=== PATIENT | male | born 1960 | race Caucasian/White ===

== ENCOUNTER 2018-08-23 12:03 | Inpatient (IN) | payer MEDICAID ==
[~2018-08-23] VITALS: Ht 180.3 cm; Wt 77.8 kg
[2018-08-23] VITALS (22 sets, daily range): BP systolic 154–208; BP diastolic 79–116
--- NOTE | 2018-08-23 12:05 | NUR ---
PT CRISTOFER FROM THE STREETS FOR C/O GEN WEAKNESS; PT AAOX4, PT ON MONITOR, NAD NOTED, VSS, PENDING ER PROVIDER NOLBERTO
[2018-08-23 12:30] LABS: BASOPHILS # (AUTO) 0.4 /CMM (0.0-0.2); BASOPHILS % (AUTO) 1.2 % (0.0-2.0); HEMATOCRIT 31 % (39-51); HEMOGLOBIN 10.4 g/dL (13.5-17.5); LYMPHOCYTES # (AUTO) 0.6 /CMM (0.8-4.8); LYMPHOCYTES % (AUTO) 1.9 % (20.0-44.0); MEAN CORPUSCULAR HGB CONC 33 g/dl (31.0-36.0); MEAN CORPUSCULAR VOLUME 80 fL (80-96); MONOCYTES # (AUTO) 0.7 /CMM (0.1-1.30); MONOCYTES % (AUTO) 2.3 % (2.0-12.0); NEUTROPHILS # (AUTO) 30.4 /CMM (1.8-8.9); NEUTROPHILS % (AUTO) 94.6 % (43.0-81.0); RED BLOOD CELL COUNT(AUTO) 3.89 MIL/uL (4.5-6.0)
[2018-08-23 12:40] LABS: PLATELET COUNT (AUTO) 1175 /CMM (150-450); WHITE BLOOD COUNT (AUTO) 32.2 K/uL (4.3-11.0)
--- NOTE | 2018-08-23 12:43 | NUR ---
PT EATING MEAL TRAY RIGHT NOW, GIVEN URINAL AT BEDSIDE FOR URINE COLLECTION
[2018-08-23] MEDS ORDERED: CEFTRIAXONE 1GM BAG (ER ONLY) 50 ML IV ONE (12:45)
[2018-08-23 12:46] LABS: BAND % (MANUAL) 2 % (0.0-5.0); EOSINOPHILS % (MANUAL) 1 % (0-4); LYMPHOCYTES % (MANUAL) 2 % (16-48); MONOCYTES % (MANUAL) 2 % (0-11.0); NEUTROPHILS % (MANUAL) 93 (42-76)
[2018-08-23 12:47] LABS: ALBUMIN 3.3 g/dL (3.4-5.0); BILIRUBIN,DIRECT 0.1 mg/dL (0.0-0.2); BILIRUBIN,TOTAL 0.4 mg/dL (0.2-1.0); CALCIUM, SERUM 9.5 mg/dL (8.5-10.1); TOTAL PROTEIN, SERUM 10.1 g/dL (6.4-8.2)
--- NOTE | 2018-08-23 12:56 | NUR ---
CALLED NURSING [facility] FOR ICU BED
[2018-08-23] MEDS ORDERED: INSULIN REGULAR, HUMAN 100 UNIT/ML 10 ML VIAL IV ONE (13:00)
[2018-08-23] MEDS ORDERED: CALCIUM CHLORIDE 1,000 MG/10 ML DISP.SYRIN IV ONE (13:00)
[2018-08-23] MEDS ORDERED: DEXTROSE 50%-WATER 50 ML DISP.SYRIN IV ONE (13:00)
[2018-08-23] MEDS ORDERED: SODIUM POLYSTYRENE SULFONATE 15 G/60 ML BOTTLE PO ONE (13:00)
[2018-08-23] MEDS ORDERED: CEFTRIAXONE 1GM BAG (ER ONLY) 1 GM/50 ML PIGGYBACK IV ONE (13:00)
[2018-08-23] MEDS ORDERED: FUROSEMIDE 40 MG/4 ML VIAL IV ONE ×2 (13:00→13:30)
[2018-08-23] MEDS ORDERED: SODIUM BICARBONATE SYR 50 MEQ/50 ML DISP.SYRIN IV ONE ×2 (13:00→13:30)
[2018-08-23] MEDS ORDERED: IV NS 0.9% 1,000 ML BAG IV ONE (13:00)
--- NOTE | 2018-08-23 13:00 | NUR ---
PER DR. HUNTLEY, ORDER FOR UROJET FOR F/C INSERTION; VERBAL ORDER REC'D
[2018-08-23] MEDS ORDERED: FUROSEMIDE 20 MG/2 ML VIAL ONE (13:01)
[2018-08-23] MEDS ORDERED: SODIUM BICARBONATE SYR 50 MEQ/50 ML DISP.SYRIN ONE ×2 (13:01→13:25)
[2018-08-23] MEDS ORDERED: CALCIUM CHLORIDE 1,000 MG/10 ML DISP.SYRIN ONE (13:02)
[2018-08-23] MEDS ORDERED: DEXTROSE 50%-WATER 50 ML DISP.SYRIN ONE (13:03)
[2018-08-23] MEDS ORDERED: INSULIN REGULAR, HUMAN 100 UNIT/ML 10 ML VIAL ONE (13:03)
--- NOTE | 2018-08-23 13:19 | NUR ---
DR DURAN ON PHONE WITH DR MORENO
[2018-08-23] MEDS ORDERED: SODIUM POLYSTYRENE SULFONATE 15 G/60 ML BOTTLE ONE (13:34)
--- NOTE | 2018-08-23 13:35 | NUR ---
GOT ICU BED 256
--- NOTE | 2018-08-23 13:45 | NUR ---
TECH AT BEDSIDE FOR US.
[2018-08-23] MEDS ORDERED: LIDOCAINE 2% JEL UROJET 10 ML MM ONE (13:48)
--- NOTE | 2018-08-23 14:30 | NUR ---
RN NOTES RECEIVED REPORT FROM ALLI GONZALES FOR PATIENT COMING IN DUE TO ACUTE RENAL FAILURE UNDER THE SERVIVE OF DR FOSTER. BED PREPARED, BED ZERO-ED OUT, AWAITING PATIENT ARRIVAL TO UNIT
--- NOTE | 2018-08-23 14:30 | NUR ---
REPORT GIVEN TO WARREN RN FOR GENESIS
[2018-08-23] MEDS ORDERED: FUROSEMIDE 40 MG/4 ML VIAL ONE (14:36)
--- NOTE | 2018-08-23 14:40 | NUR ---
RN NOTES RECEIVED PATIENT FROM ER VIA GURNEY, TRANSFERRED COMFORTABLY TO BED, PATIENT ALERT AND ORIENTED X4, ABLE TO MAKE NEEDS KNOWN, ON ROOM AIR, NOT ON ANY FORM OF DISTRESS, NO COMPLAINTS OF PAIN AT THIS TIME. PLACED ON BED SIDE MONITOR: SINUS RHYTHM HR AT 99, BLOOD PRESSURE NOTED TO BE ELEVATED. PER CHRISTIAN CARSON, BLOOD PRESSURE HAS BEEN ELEVATED. SKIN ASSESSMENT DONE, SKIN ISSUES NOTED, TAKEN PICTURES AND FILED ON THE CHART. HD CATH NOTED ON THE R GROIN AREA: IN PLACE AND INTACT. G20 IV LINE ON THE R HAND AND ON THE LEFT AC: BOTH INTACT AND IN PLACE. WITH ONGOING IVF OF NORMAL SALINE- WIDE OPEN: STARTED AT THE ER WILL FINISH UP. PATIENT ORIENTED TO UNIT. CALL LIGHT PLACED WITHIN REACH. SAFETY MEASURES OBSERVED AND MAINTAIN, WILL FOLLOW UP ON ADMITTING ORDERS. WILL CONTINUE TO MONITOR PATIENT CLOSELY
--- NOTE | 2018-08-23 14:40 | NUR ---
PT TRANSFERRED TO ICU VIA ACLS PROTOCOL
--- NOTE | 2018-08-23 15:21 | NUR ---
RN NOTES SEEN AND EXAMINED BY DR MORENO. INFORMED MD THAT SYSTOLIC BLOOD PRESSURE ON THE 170 AT THIS TIME, PER MD- CONTINUE TO MONITOR SINCE PATIENT WILL GET DIALYZE TODAY.
[2018-08-23] MEDS ORDERED: ONDANSETRON HCL/PF 4 MG/2 ML VIAL IVP PRN (15:30)
[2018-08-23] MEDS ORDERED: Z GUARD REMEDY 2 OZ OINT TP PRN (15:30)
[2018-08-23] MEDS ORDERED: ACETAMINOPHEN 325 MG TABLET PO PRN (15:30)
[2018-08-23] MEDS ORDERED: FEE PK DOSING 1 MIN EA MC ONE (15:41)
[2018-08-23] MEDS: HYDROCODONE/APAP 5/325MG 1 EACH TABLET PO PRN (16:19)
[2018-08-23] MEDS ORDERED: NITROGLYCERIN 30 GM TUBE TP PRN (16:30)
[2018-08-23] MEDS ORDERED: VANCOMYCIN 1 GM in IV D5W 250 ML IV ONE (17:00)
[2018-08-23] MEDS ORDERED: CEFEPIME 1 GM in IV D5W 50 ML IV ONE (17:00)
[2018-08-23] MEDS ORDERED: IV NS 0.9% 250 ML IV ONE (17:00)
--- NOTE | 2018-08-23 17:00 | NUR ---
RN NOTES REINFORMED DR MORENO THAT BLOOD PRESSURE NOW AT SYSTOLIC OF 200MMHG; OBTAINED ORDER FOR NITROGLYCERIN OINTMENT 1GM TO CHEST WALL Q6HR PRN FOR SYSTOLIC BLOOD PRESSURE GREATER THAN 170MMHG. ORDER NOTED AND CARRIED OUT
[2018-08-23] MEDS: IV NS 0.9% 1,000 ML IV PRN (17:03)
[2018-08-23] MEDS ORDERED: IV Sodium Chloride 3% 500 ML 500 ML IV ONE (17:30)
[2018-08-23] MEDS ORDERED: OSELTAMIVIR PHOSPHATE 75 MG CAPSULE PO SCH (17:59)
[2018-08-23] MEDS ORDERED: BISACODYL (5 MG) 5 MG TABLET.DR PO PRN (18:00)
--- NOTE | 2018-08-23 18:00 | NUR ---
RN NOTES PATIENT WITH ATTEMPTS TO DEFECATE TWICE AND WAS ASKING FOR ENEMA. CURRENTLY NO ORDER FOR ENEMA. DR. FOSTER INFORMED TO OBTAIN ORDER. OBTAIN ORDER FOR DULCOLAX 5MG TABLET PO PRN FOR CONSTIPATION. ORDER NOTED AND CARRIED OUT Addendum: 08/23/18 at 1842 by WARREN SUNG RN PATIENT STARTED ON DIALYSIS TREATMENT AT THIS TIME
--- NOTE | 2018-08-23 19:16 | NUR ---
RN NOTES ENDORSED PATIENT FOR CONTINUITY OF CARE. NO ACUTE CHANGES. NOT ON ANY FORM OF DISTRESS. PATIENT STILL ON DIALYSIS TREATMENT. ALL NURSING NEEDS ATTENDED AND MET. SAFETY MEASURES IN PLACE AT ALL TIMES. CALL LIGHT WITHIN REACH AT ALL TIMES
--- NOTE | 2018-08-23 19:30 | NUR ---
ICU/RN RECEIVED PT AWAKE,ALERT AND ORIENTED.HD IN PROGRESS.MONITOR SR W/OUT ECTOPICS.
--- NOTE | 2018-08-23 20:55 | NUR ---
ICU/RN CALL PLACED TO DR. MORENO'S EXCHANGE FOR SBP OF 204.DR KNOX EXTENSION SERVICE SPECIALIST IN CHARGE,ORDER RECEIVED.
--- NOTE | 2018-08-23 23:30 | NUR ---
ICU/RN CLONIDINE 0.1MG GIVEN FOR SBP OF 195MMHG ORDERED.
[2018-08-23] MEDS: CLONIDINE HCL 0.1 MG TABLET PO PRN (23:31)
[2018-08-24] VITALS (34 sets, daily range): BP systolic 119–167; BP diastolic 62–101
--- NOTE | 2018-08-24 | NUR ---
ICU/RN CLONIDINE EFFECTIVE.SEE DATASCOPE SHEET.
--- NOTE | 2018-08-24 03:30 | NUR ---
ICU/RN AWAKE AND WANTING SOMETHING TO EAT AND WATER TO DRINK.MILK,ELAINE CRACKERS AND VANILLA PUDDING GIVEN.QUESTIONS ASKED REGARDING MEDS,CORRECTION AND HE STATED "I'M HOMELESS."SOCIAL SERVICE CONSULT NEEDED
[2018-08-24 04:37] LABS: APPEARANCE,URINE CLOUDY (CLEAR); BILIRUBIN,URINE NEGATIVE (NEGATIVE); BLOOD, URINE 3+ Ery/uL (NEGATIVE); COLOR,URINE RED (YELLOW); KETONES,URINE NEGATIVE (NEGATIVE); LEUKOCYTE ESTERASE ,URINE 3+ (NEGATIVE); NITRITE, URINE POSITIVE (NEGATIVE); PROTEIN,URINE 2+ mg/dl (NEGATIVE); UGLUCOSE NEGATIVE (NEGATIVE); UROBILINOGEN,URINE 0.2 EU/dL (0.2)
[2018-08-24 04:43] LABS: BACTERIA,URINE Few /HPF (None Seen); RBC,URINE TOO NUMEROUS TO COUN /HPF (0-2); SQUAMOUS EPITHELIAL CELL,UR Rare /HPF (None Seen); WBC,URINE TOO NUMEROUS TO COUN /HPF (0-3)
[2018-08-24 04:58] LABS: CALCIUM, SERUM 7.8 mg/dL (8.5-10.1); MAGNESIUM 1.8 mg/dL (1.8-2.4); POTASSIUM 5.7 mmol/L (3.5-5.1)
[2018-08-24 05:00] LABS: THYROID STIMULATING HORMONE 1.48 uIU/mL (0.358-3.74)
[2018-08-24 05:14] LABS: CREATININE 10.5 mg/dL (0.6-1.3)
[2018-08-24 05:17] LABS: HEMATOCRIT 23 % (39-51); MEAN CORPUSCULAR HGB CONC 35 g/dl (31.0-36.0); MEAN CORPUSCULAR VOLUME 78 fL (80-96); RED BLOOD CELL COUNT(AUTO) 2.89 MIL/uL (4.5-6.0); WHITE BLOOD COUNT (AUTO) 22.3 K/uL (4.3-11.0)
[2018-08-24 05:18] LABS: BASOPHILS % (AUTO) 0.1 % (0.0-2.0); LYMPHOCYTES % (AUTO) 2.9 % (20.0-44.0); MONOCYTES % (AUTO) 5.4 % (2.0-12.0); NEUTROPHILS % (AUTO) 91.6 % (43.0-81.0); PLATELET COUNT (AUTO) 831 /CMM (150-450)
--- NOTE | 2018-08-24 06:00 | NUR ---
ICU/RN. OY=[id number].DENIES PAIN OR DISCOMFORT.OFFERS NO COMPLAINTS.
--- NOTE | 2018-08-24 07:10 | NUR ---
RN INITIAL NOTES: Rec'd pt asleep on bed, not in any distress, easily arousable, A/O x 4. On room air, no SOB. On telemonitor, SR 86 bpm. Has R hand G20 w/ NS x 75 cc/hr infusing well, L AC G20 SL. Has FC draining to BSB w/ adequate yellowish w/ pink tinged UOP. Has R groin HD cath in place. Safety precaution in place. Bed in locked & lowest pos. Call light w/in reach. Will cont to monitor & attend pt needs.
[2018-08-24] MEDS: PANTOPRAZOLE 40 MG TABLET.DR PO SCH (07:36)
[2018-08-24] MEDS: SEVELAMER CARBONATE 800 MG TABLET PO SCH ×3 (07:36→17:51)
[2018-08-24] MEDS: IV NS 0.9% 1,000 ML IV PRN ×2 (07:36→21:07)
--- NOTE | 2018-08-24 11:30 | NUR ---
Pt seen & examined by Dr. Gallardo.
--- NOTE | 2018-08-24 14:00 | NUR ---
HD tolerated well w/ 1L output.
[2018-08-24] MEDS ORDERED: VANCOMYCIN 500 MG in IV D5W 100 ML IV PRN (16:00)
[2018-08-24] MEDS: CEFEPIME 1 GM in IV D5W 50 ML IV SCH (17:51)
[2018-08-24] MEDS: LACTOBACILLUS RHAMNOSUS GG 1 EACH CAP.SPRINK PO SCH (17:51)
[2018-08-24] MEDS ORDERED: OSELTAMIVIR PHOSPHATE 75 MG CAPSULE PO SCH (18:00)
--- NOTE | 2018-08-24 18:20 | NUR ---
SUPERINTENDENT PIER NOTES: Pt transferred to [facility] as ordered via bed accompanied by RNs (ACLS protocol). Pt not in any distress, A/O x 4, denies pain & discomfort during transfer. IV lines kept patent & intact w/ no s/sx of infection/infiltration noted w/ C/D/I dressing. Belongings sent w/ pt. Report given to ALLI Holcomb. No concerns/issues identified during transfer.
--- NOTE | 2018-08-24 18:30 | NUR ---
ms rn received a new transfer from icu, a 58 year old male,awake,alert,oriented x4,not in any form of distress, came in w/ dx of acute renal failure, no distress noted, will continue to monitor patient.
--- NOTE | 2018-08-24 18:52 | NUR ---
ms rn on bed, no distress note.
--- NOTE | 2018-08-24 19:42 | NUR ---
FLUORESCENT LAMP REPLACER OPENING NOTES: RECEIVED PT IN HIGH REYES'S POSITION AND IS ASLEEP AT THIS TIME. PT ON TELE AND READING SHOWS SR 80. PT HAS GUERRIER CATH AND IS ATTACHED TO DRAINAGE BAG WITH YELLOW URINE DRAINING. PT HAS IV ON R HAND #20G AND IS BEING INFUSED WITH IV NS AT 75ML/HR. PT HAS R GROIN HD CATH AND IS INTACT. PT ALSO HAS IV ON L AC #20G AND IS PATENT AND INTACT. BED KEPT IN LOW, LOCKED POSITION, AND SIDE RAILS X 2UP. PT HAS BILATERAL SCD PUMPS IN PLACE. WILL CONTINUE TO MONITOR PT.
[2018-08-25] VITALS (8 sets, daily range): BP systolic 96–163; BP diastolic 58–86
--- NOTE | 2018-08-25 06:50 | NUR ---
DINING ROOM HOST CLOSING NOTES: ALL NEEDS WERE ATTENDED AND ANTICIPATED FOR. PT RESTING IN BED COMFORTABLY AT THIS TIME. PT ON ROOM AIR AND TOLERATING WELL .NO SOB NOTED. NO S/S OF DISTRESS. PT REFUSING TO HAVE BED BATH OFFERED MULTIPLE TIMES. PT ON TELE BOX AND READING SHOWS SR 73. PT HAS NITRO BID PATCH ON CHEST WALL. PT HAS GUERRIER CATH AND IS ATTACHED TO DRAINAGE BAG WITH YELLOW URINE DRAINING. OUTPUT WAS 1900ML. PT HAS IV ON R HAND #20G AND IS BEING INFUSED WITH IV NS AT 75ML/HR. PT ALSO HAS L AC #20G AND IS PATENT AND INTACT. CURRENTLY H/L. PT ALSO HAS R FEMORAL HD CATH AND IS PATENT AND INTACT. PT HAS BILATERAL SCD PUMPS IN PLACE. BED KEPT IN LOW, LOCKED POSITION, AND SIDE RAILS X 2UP. WILL ENDORSE TO AM NURSE FOR GENESIS.
[2018-08-25 07:07] LABS: BASOPHILS % (AUTO) 0.1 % (0.0-2.0); EOSINOPHILS % (AUTO) 0.1 % (0.0-6.0); HEMATOCRIT 23 % (39-51); HEMOGLOBIN 7.6 g/dL (13.5-17.5); LYMPHOCYTES # (AUTO) 0.8 /CMM (0.8-4.8); LYMPHOCYTES % (AUTO) 3.7 % (20.0-44.0); MEAN CORPUSCULAR HGB CONC 33 g/dl (31.0-36.0); MEAN CORPUSCULAR VOLUME 80 fL (80-96); MONOCYTES # (AUTO) 1.4 /CMM (0.1-1.30); NEUTROPHILS # (AUTO) 20.6 /CMM (1.8-8.9); NEUTROPHILS % (AUTO) 90.1 % (43.0-81.0); PLATELET COUNT (AUTO) 656 /CMM (150-450); RED BLOOD CELL COUNT(AUTO) 2.89 MIL/uL (4.5-6.0); WHITE BLOOD COUNT (AUTO) 22.8 K/uL (4.3-11.0)
--- NOTE | 2018-08-25 07:15 | NUR ---
air surveillance operator Opening Notes 324-1 Patient awake, resting in bed. Alert and oriented x4. No complaints of dizziness or pain at this time. Respirations even and unlabored on room air, no acute distress noted. External surveillance monitor in place, current rhythm sinus rhythm at 66 bpm. Peripheral IV to the left AC 20 gauge, intact, patent and saline locked; Peripheral IV to the right hand 20 gauge, intact, patent and NS at 75 mL/hr. Garcia catheter in place, intact, patent and draining clear, yellow urine. Right femoral hemodiaylsis catheter in place, patent and intact. Updated patient on current plan of care and safety meaures. Safety and fall precautions in place: bed in lowest and locked position, side rails up x2, bed alarm on, call light and personal possessions within reach. Patient verbalized understanding. Will continue to monitor and intervene as needed.
[2018-08-25 07:35] LABS: MAGNESIUM 1.9 mg/dL (1.8-2.4); POTASSIUM 4.9 mmol/L (3.5-5.1)
[2018-08-25 07:38] LABS: PHOSPHORUS 8.4 mg/dL (2.5-4.9)
[2018-08-25 08:03] LABS: BAND % (MANUAL) 3 % (0.0-5.0); EOSINOPHILS % (MANUAL) 1 % (0-4); LYMPHOCYTES % (MANUAL) 4 % (16-48); MONOCYTES % (MANUAL) 6 % (0-11.0); NEUTROPHILS % (MANUAL) 86 (42-76)
[2018-08-25] MEDS: SEVELAMER CARBONATE 800 MG TABLET PO SCH ×3 (08:20→17:07)
[2018-08-25] MEDS: PANTOPRAZOLE 40 MG TABLET.DR PO SCH (08:20)
[2018-08-25] MEDS: LACTOBACILLUS RHAMNOSUS GG 1 EACH CAP.SPRINK PO SCH ×2 (08:20→16:14)
[2018-08-25] MEDS: IV NS 0.9% 1,000 ML IV PRN (09:52)
--- NOTE | 2018-08-25 12:35 | NUR ---
lathe winder at bedside to dialyze patient. Will continue to monitor status.
--- NOTE | 2018-08-25 16:00 | NUR ---
HD finished on patient; in stable condition. Vital signs stable. Per sustainability manager, no output from HD, cleaning/maintenance only. RN changed right femoral HD catheter dressing this visit. Will continue to monitor.
[2018-08-25] MEDS: CEFEPIME 1 GM in IV D5W 50 ML IV SCH (16:13)
--- NOTE | 2018-08-25 19:00 | NUR ---
MS RN Closing Notes 324-1 Patient awake, resting in bed. Alert and oriented x4. No complaints of dizziness or pain at this time. No acute events this shift. Respirations even and unlabored on room air, no acute distress noted. External equipment monitor phototypesetting in place, current rhythm sinus rhythm at 66 bpm. Peripheral IV to the left AC 20 gauge, intact, patent and saline locked; Peripheral IV to the right hand 20 gauge, intact, patent and NS at 75 mL/hr. Garcia catheter in place, intact, patent and draining yellow with minor sediment particles urine. Strict intake and output monitored. Right femoral hemodiaylsis catheter in place, patent and intact, dressing changed today (08/25/18) by home economist consumer service. Updated patient on current plan of care and safety measures. Safety and fall precautions in place: bed in lowest and locked position, side rails up x2, bed alarm on, call light and personal possessions within reach. Patient verbalized understanding. Will endorse to hourly shift manager RN for continuity of care.
--- NOTE | 2018-08-25 19:15 | NUR ---
MS RN OPENING NOTES Patient A/O x4, awake on Lindquist's position on bed with patent peripheral IV lines LAC G#20, SL and R hand G#20 with NS @ 75ml/hr as ordered. Patient denies discomfort at this time. With indwelling FC with clear yellow urine output noted. Kept bed low and locked, siderails up. Call light within easy reach. Will continue to monitor accordingly.
[2018-08-25] MEDS: CLONIDINE HCL 0.1 MG TABLET PO PRN (20:28)
[2018-08-25] MEDS: ZOLPIDEM TARTRATE 5 MG TABLET PO PRN (22:33)
--- NOTE | 2018-08-25 22:37 | NUR ---
MS RN NOTES RECHECKED BP 138/78 mmHg.
[2018-08-26] MEDS: IV NS 0.9% 1,000 ML IV PRN ×2 (03:08→16:31)
--- NOTE | 2018-08-26 07:00 | NUR ---
MS RN CLOSING NOTES Patient asleep on bed. On RA, no SOB/respiratory distress noted. Afebrile the whole shift. No new complaints made. All needs attended. Kept bed low and locked. Call light at bedside. Endorsed to the next shift.
[2018-08-26 07:23] LABS: BASOPHILS # (AUTO) 0.1 /CMM (0.0-0.2); BASOPHILS % (AUTO) 0.5 % (0.0-2.0); EOSINOPHILS % (AUTO) 0.8 % (0.0-6.0); HEMATOCRIT 21 % (39-51); LYMPHOCYTES # (AUTO) 1.4 /CMM (0.8-4.8); LYMPHOCYTES % (AUTO) 6.1 % (20.0-44.0); MEAN CORPUSCULAR HGB CONC 33 g/dl (31.0-36.0); MEAN CORPUSCULAR VOLUME 80 fL (80-96); MONOCYTES # (AUTO) 1.7 /CMM (0.1-1.30); MONOCYTES % (AUTO) 7.8 % (2.0-12.0); NEUTROPHILS # (AUTO) 18.9 /CMM (1.8-8.9); NEUTROPHILS % (AUTO) 84.8 % (43.0-81.0); PLATELET COUNT (AUTO) 528 /CMM (150-450); RED BLOOD CELL COUNT(AUTO) 2.59 MIL/uL (4.5-6.0); WHITE BLOOD COUNT (AUTO) 22.3 K/uL (4.3-11.0)
[2018-08-26 07:34] LABS: HEMOGLOBIN 6.8 g/dL (13.5-17.5)
[2018-08-26 07:36] LABS: CALCIUM, SERUM 7.6 mg/dL (8.5-10.1); CREATININE 6.4 mg/dL (0.6-1.3); POTASSIUM 4.5 mmol/L (3.5-5.1)
--- NOTE | 2018-08-26 07:36 | NUR ---
MS ALLI Opening Notes 324-1 Patient awake, resting in bed. Alert and oriented x4. No complaints of dizziness or pain at this time. Respirations even and unlabored on room air, no acute distress noted. Peripheral IV to the left AC 20 gauge, intact, patent and saline locked; Peripheral IV to the right hand 20 gauge, intact, patent and NS at 75 mL/hr. Garcia catheter in place, intact, patent and draining clear, yellow urine. Right femoral hemodiaylsis catheter in place, patent and intact. Updated patient on current plan of care and safety measures. Safety and fall precautions in place: bed in lowest and locked position, side rails up x2, bed alarm on, call light and personal possessions within reach. Patient verbalized understanding. Will continue to monitor and intervene as needed. Addendum: 08/26/18 at 0831 by RAJESH MORAN RN Correction: [id number]
[2018-08-26 08:00] VITALS: BP 157/80
[2018-08-26] MEDS: LACTOBACILLUS RHAMNOSUS GG 1 EACH CAP.SPRINK PO SCH ×2 (08:06→16:32)
[2018-08-26] MEDS: SEVELAMER CARBONATE 800 MG TABLET PO SCH ×3 (08:06→17:52)
[2018-08-26] MEDS: PANTOPRAZOLE 40 MG TABLET.DR PO SCH (08:06)
[2018-08-26 09:07] LABS: EOSINOPHILS % (MANUAL) 2 % (0-4); LYMPHOCYTES % (MANUAL) 3 % (16-48); MONOCYTES % (MANUAL) 6 % (0-11.0); NEUTROPHILS % (MANUAL) 89 (42-76)
[2018-08-26 16:00] VITALS: BP 145/78
[2018-08-26] MEDS: CEFTRIAXONE 1 G in IV D5W 50 ML IV SCH (16:32)
--- NOTE | 2018-08-26 18:54 | NUR ---
MS RN Closing Notes 323-1 Patient awake, resting in bed. Alert and oriented x4. No complaints of pain at this time. No acute events this shift. Respirations even and unlabored on room air, no acute distress noted. Peripheral IV to the right hand 20 gauge, intact, patent and NS at 75 mL/hr. Garcia catheter in place, intact, patent and draining yellow with minor sediment particles in urine. Strict intake and output monitored. Right femoral hemodialysis catheter in place, patent and intact, dressing changed on 08/25/18. Updated patient on current plan of care and safety measures. Per Dr. Redding, patient to have hemodialysis tomorrow on 08/27/18. Safety and fall precautions in place: bed in lowest and locked position, side rails up x2, bed alarm on, call light and personal possessions within reach. Patient verbalized understanding. Will endorse to warehouse supervisor 3rd shift RN for continuity of care.
--- NOTE | 2018-08-26 19:30 | NUR ---
RECEIVED PATIENT IN BED WAKE. AO X 3, ABLE TO MAKE NEEDS KNOWN. NO ACUTE DISTRESS NOTED. DENIES ANY PAIN AT THIS TIME. IV SITE PATENT, INTACT; IVF INFUSING ORDERED. GUERRIER CATH PATENT, INTACT; DRAINING YELLOW URINE. SAFETY REMINDERS GIVEN. ON LOW BED WITH BILATERAL UPPER SIDE RAILS UP. CALL [place]LL WITHIN EASY REACH. WILL CONTINUE TO MONITOR.
[2018-08-26 20:00] VITALS: BP 155/81
--- NOTE | 2018-08-27 06:00 | NUR ---
PATIENT ASLEEP, EASILY AROUSABLE. RESPIRATIONS EVEN. NO SIGNS OF PAIN NOTED. IVF INFUSING ORDERED. NEEDS ATTENDED. SAFETY PRECAUTIONS AND COMFORT MEASURES IN PLACE. WILL GIVE REPORT TO DAY SHIFT FOR CONTINUITY OF CARE.
[2018-08-27 06:20] LABS: BASOPHILS # (AUTO) 0.1 /CMM (0.0-0.2); BASOPHILS % (AUTO) 0.5 % (0.0-2.0); HEMATOCRIT 22 % (39-51); HEMOGLOBIN 7.4 g/dL (13.5-17.5); LYMPHOCYTES # (AUTO) 1.1 /CMM (0.8-4.8); LYMPHOCYTES % (AUTO) 4.6 % (20.0-44.0); MEAN CORPUSCULAR HGB CONC 34 g/dl (31.0-36.0); MEAN CORPUSCULAR VOLUME 80 fL (80-96); MONOCYTES # (AUTO) 1.5 /CMM (0.1-1.30); MONOCYTES % (AUTO) 6.2 % (2.0-12.0); NEUTROPHILS # (AUTO) 21.7 /CMM (1.8-8.9); NEUTROPHILS % (AUTO) 87.7 % (43.0-81.0); PLATELET COUNT (AUTO) 525 /CMM (150-450); RED BLOOD CELL COUNT(AUTO) 2.75 MIL/uL (4.5-6.0); WHITE BLOOD COUNT (AUTO) 24.8 K/uL (4.3-11.0)
[2018-08-27 06:56] LABS: CALCIUM, SERUM 8.2 mg/dL (8.5-10.1); POTASSIUM 4.6 mmol/L (3.5-5.1)
[2018-08-27 07:03] LABS: CREATININE 7.7 mg/dL (0.6-1.3)
[2018-08-27 07:07] LABS: FREE PSA 2.41 ng/mL (0.00-45); PROSTATE SPECIFIC ANTIGEN SCR 12.22 ng/mL (0.00-4.00)
--- NOTE | 2018-08-27 07:28 | NUR ---
MS RN OPENING NOTES PATIENT IS A/OX4, IN NO APPARENT DISTRESS. BEDSIDE RAILS ARE UPX2. BED IS LOCKED AND LOWERED. CALL LIGHT WITHIN REACH. IV LINE IS INTACT AND PATENT. WILL CONTINUE TO MONITOR.
[2018-08-27 08:00] VITALS: BP 142/99
[2018-08-27 08:11] LABS: BAND % (MANUAL) 8 % (0.0-5.0); EOSINOPHILS % (MANUAL) 1 % (0-4); LYMPHOCYTES % (MANUAL) 3 % (16-48); METAMYELOCYTES % 1 % (0-0); MONOCYTES % (MANUAL) 8 % (0-11.0); MYELOCYTES % 1 % (0-0); NEUTROPHILS % (MANUAL) 78 (42-76)
[2018-08-27] MEDS: PANTOPRAZOLE 40 MG TABLET.DR PO SCH (08:12)
[2018-08-27] MEDS: SEVELAMER CARBONATE 800 MG TABLET PO SCH ×3 (08:12→17:35)
[2018-08-27] MEDS: LACTOBACILLUS RHAMNOSUS GG 1 EACH CAP.SPRINK PO SCH ×2 (08:12→16:06)
[2018-08-27] MEDS: IV NS 0.9% 1,000 ML IV PRN (12:18)
[2018-08-27 16:00] VITALS: BP 141/83
[2018-08-27] MEDS: CEFTRIAXONE 1 G in IV D5W 50 ML IV SCH (16:07)
--- NOTE | 2018-08-27 18:06 | NUR ---
MS RN CLOSING NOTES PATIENT IS IN STABLE CONDITION. IN NO APPARENT DISTRESS. BEDSIDE RAILS ARE UPX2. BED IS LOCKED AND LOWERED. CALL LIGHT IS WITHIN REACH. IV LINE IS INTACT AND PATENT. ALL NEEDS WERE MET. WILL ENDORSE CARE TO CLIENT SERVICES VICE PRESIDENT NURSE FOR GENESIS.
--- NOTE | 2018-08-27 19:30 | NUR ---
RN OPENING NOTE RECEIVED PT. PT STABLE AND RESTING IN BED. NO S/S OF RESP DISTRESS/SOB. NO C/O PAIN AT THIS TIME. A/OX4. IV ACCESS LOCATED ON R HAND, 24 G INFUSING NS AT 75 CC/HR. RIGHT FEMORAL HD CATH NOTED. SAFETY MEASURES IN PLACE, CALL LIGHT WITHIN REACH. WILL CONTINUE TO MONITOR.
[2018-08-27 20:00] VITALS: BP 164/85
[2018-08-27 21:13] VITALS: BP 164/85
--- NOTE | 2018-08-28 00:30 | NUR ---
RN NOTES PT MOVED TO BED 325-1. WILL CONTINUE TO MONITOR.
--- NOTE | 2018-08-28 06:08 | NUR ---
RN CLOSING NOTE PT IN BED SLEEPING. NO S/S OF RESP DISTRESS/SOB. PT DOES NOT APPEAR TO BE IN PAIN AT THIS TIME. PER MD MORENO PROGRESS NOTE, PT WAS TO HAVE HD ON 08/27/17, NO HD ORDERED ON EMR, PROCEDURE NOT PERFORMED. WILL NOTIFY DAY SHIFT TO F/U WITH . ALL PT NEEDS ANTICIPATED AND MET, SAFETY MEASURES IN PLACE, CALL LIGHT WITHIN REACH. WILL ENDORSE TO DAY SHIFT FOR GENESIS.
[2018-08-28 08:00] VITALS: BP 150/87
--- NOTE | 2018-08-28 08:00 | NUR ---
MS RN OPENING NOTE RECEIVED PT. PT STABLE AND RESTING IN BED. NO S/S OF RESP DISTRESS/SOB. NO C/O PAIN AT THIS TIME. A/OX4. IV ACCESS LOCATED ON R HAND, 24 G INFUSING NS AT 75 CC/HR. RIGHT FEMORAL HD CATH NOTED. SEEN BY DR DAINA MORENO AND BELLA,VIKRAM.SAFETY MEASURES IN PLACE, CALL LIGHT WITHIN REACH. WILL CONTINUE TO MONITOR.
[2018-08-28] MEDS: LACTOBACILLUS RHAMNOSUS GG 1 EACH CAP.SPRINK PO SCH ×2 (09:18→16:11)
[2018-08-28] MEDS: SEVELAMER CARBONATE 800 MG TABLET PO SCH ×3 (09:18→17:15)
[2018-08-28] MEDS: PANTOPRAZOLE 40 MG TABLET.DR PO SCH (09:19)
[2018-08-28] MEDS: HYDROCODONE/APAP 5/325MG 1 EACH TABLET PO PRN ×2 (09:19→20:35)
[2018-08-28 10:54] LABS: BASOPHILS # (AUTO) 0.1 /CMM (0.0-0.2); BASOPHILS % (AUTO) 0.5 % (0.0-2.0); EOSINOPHILS % (AUTO) 1.6 % (0.0-6.0); HEMATOCRIT 22 % (39-51); HEMOGLOBIN 7.5 g/dL (13.5-17.5); LYMPHOCYTES # (AUTO) 1.2 /CMM (0.8-4.8); LYMPHOCYTES % (AUTO) 5.2 % (20.0-44.0); MEAN CORPUSCULAR HGB CONC 34 g/dl (31.0-36.0); MEAN CORPUSCULAR VOLUME 82 fL (80-96); MONOCYTES # (AUTO) 1.7 /CMM (0.1-1.30); MONOCYTES % (AUTO) 7.4 % (2.0-12.0); NEUTROPHILS # (AUTO) 19.3 /CMM (1.8-8.9); NEUTROPHILS % (AUTO) 85.3 % (43.0-81.0); PLATELET COUNT (AUTO) 444 /CMM (150-450); RED BLOOD CELL COUNT(AUTO) 2.73 MIL/uL (4.5-6.0); WHITE BLOOD COUNT (AUTO) 22.6 K/uL (4.3-11.0)
[2018-08-28 11:11] LABS: CALCIUM, SERUM 7.9 mg/dL (8.5-10.1); MAGNESIUM 1.9 mg/dL (1.8-2.4); PHOSPHORUS 6.5 mg/dL (2.5-4.9); POTASSIUM 4.2 mmol/L (3.5-5.1)
[2018-08-28 11:22] LABS: CREATININE 8.4 mg/dL (0.6-1.3)
[2018-08-28 11:55] LABS: BAND % (MANUAL) 1 % (0.0-5.0); EOSINOPHILS % (MANUAL) 1 % (0-4); LYMPHOCYTES % (MANUAL) 7 % (16-48); MONOCYTES % (MANUAL) 4 % (0-11.0); MYELOCYTES % 1 % (0-0); NEUTROPHILS % (MANUAL) 86 (42-76)
[2018-08-28] MEDS ORDERED: LORAZEPAM 1 MG TABLET PO PRN (12:00)
--- NOTE | 2018-08-28 12:05 | NUR ---
SEEN BY DR ARANDA FOR PSYCH CONSULT WITH ORDERS MADE AND CARRIED OUT.
--- NOTE | 2018-08-28 15:00 | NUR ---
HD PROCEDURE DONE TODAY WITH NO OUTPUT. BP 134/75 HR 76 .PT TOLERATED WELL.
[2018-08-28] MEDS: IV NS 0.9% 1,000 ML IV PRN (15:26)
[2018-08-28 16:00] VITALS: BP 130/79
[2018-08-28] MEDS: CEFTRIAXONE 1 G in IV D5W 50 ML IV SCH (16:18)
--- NOTE | 2018-08-28 18:49 | NUR ---
PT RESTING IN BED DENYING ANY PAIN OR DISTRESS WITH ONGOING IVF OF NS AT 75 ML/HR FOR GENTLE HYDRATION.GUERRIER CATH EMPTIED WITH 1475 ML CLEAR YELLOW URINE OUTPUT.CALL LIGHT PLACED WITHIN REACH.
[2018-08-28 20:00] VITALS: BP 136/79
--- NOTE | 2018-08-28 20:00 | NUR ---
MS RN NOTES RECEIVED PATIENT AWAKE IN BED AND WATCHING TV WITH NO DISTRESS NOTED. CALL LIGHT WITHIN REACH. NO C/O PAIN OR DISCOMFORT. PERIPHERAL LINE INTACT AND PATENT. BED IN LOW LOCK SETTING. ALL BELONGINGS KEPT NEAR BEDSIDE. WILL CONTINUE TO MONITOR.
[2018-08-29] MEDS: IV NS 0.9% 1,000 ML IV PRN ×2 (05:19→17:04)
--- NOTE | 2018-08-29 06:24 | NUR ---
ETYMOLOGY PROFESSOR NOTES PATIENT ASLEEP IN BED. NO DISTRESS NOTED. CALL LIGHT WITHIN REACH. PERIPHERAL LINE INTACT AND PATENT. ALL DUE MEDS GIVEN ORDERED WITH NO ASE NOTED. NO FURTHER C/O PAIN OR DISCOMFORT. FC INTACT/PATENT AND DRAINED 2500ML YELLOW CLEAR URINE DURING SHIFT. BED IN LOW LOCK SETTING. ALL BELONGINGS KEPT NEAR BEDSIDE. WILL CONTINUE TO MONITOR. Addendum: 08/29/18 at 0626 by JORDYN CABEZAS RN RN NOTES
--- NOTE | 2018-08-29 07:35 | NUR ---
RN OPENING NOTE PT WAS RECEIVED IN BED AT LOWEST AND LOCKED POSITION WITH SIDE RAILS UP X2, A/O X4, BREATHING EVEN AND UNLABORED ON RA, NO S/S OF PAIN OR DISTRESS NOTED, IV IS PATENT AND INTACT, NOTED TO HAVE GUERRIER IN PLACE AND A RIGHT FEMORAL HD CATH, SAFETY PRECAUTIONS IN PLACE, CALL LIGHT WITHIN REACH, WILL MONITOR ACCORDINGLY.
[2018-08-29] MEDS: PANTOPRAZOLE 40 MG TABLET.DR PO SCH (08:12)
[2018-08-29] MEDS: HYDROCODONE/APAP 5/325MG 1 EACH TABLET PO PRN ×2 (08:12→17:08)
[2018-08-29] MEDS: LACTOBACILLUS RHAMNOSUS GG 1 EACH CAP.SPRINK PO SCH ×2 (08:12→17:05)
[2018-08-29] MEDS: SEVELAMER CARBONATE 800 MG TABLET PO SCH ×3 (08:12→17:06)
[2018-08-29 08:35] LABS: BASOPHILS # (AUTO) 0.2 /CMM (0.0-0.2); BASOPHILS % (AUTO) 0.7 % (0.0-2.0); EOSINOPHILS % (AUTO) 1.2 % (0.0-6.0); HEMATOCRIT 22 % (39-51); HEMOGLOBIN 7.2 g/dL (13.5-17.5); LYMPHOCYTES # (AUTO) 1.2 /CMM (0.8-4.8); LYMPHOCYTES % (AUTO) 5.3 % (20.0-44.0); MEAN CORPUSCULAR HGB CONC 33 g/dl (31.0-36.0); MEAN CORPUSCULAR VOLUME 82 fL (80-96); MONOCYTES # (AUTO) 1.4 /CMM (0.1-1.30); MONOCYTES % (AUTO) 6.4 % (2.0-12.0); NEUTROPHILS # (AUTO) 18.9 /CMM (1.8-8.9); NEUTROPHILS % (AUTO) 86.4 % (43.0-81.0); PLATELET COUNT (AUTO) 355 /CMM (150-450); RED BLOOD CELL COUNT(AUTO) 2.71 MIL/uL (4.5-6.0); WHITE BLOOD COUNT (AUTO) 21.8 K/uL (4.3-11.0)
[2018-08-29 08:52] VITALS: BP 140/71
[2018-08-29 09:02] LABS: CALCIUM, SERUM 7.9 mg/dL (8.5-10.1); CREATININE 7.4 mg/dL (0.6-1.3); MAGNESIUM 1.9 mg/dL (1.8-2.4); PHOSPHORUS 6.6 mg/dL (2.5-4.9); POTASSIUM 4.5 mmol/L (3.5-5.1)
[2018-08-29 13:21] LABS: LYMPHOCYTES % (MANUAL) 4 % (16-48); MONOCYTES % (MANUAL) 5 % (0-11.0); MYELOCYTES % 1 % (0-0); NEUTROPHILS % (MANUAL) 90 (42-76)
[2018-08-29 15:55] VITALS: BP 120/68
[2018-08-29] MEDS: CEFTRIAXONE 1 G in IV D5W 50 ML IV SCH (17:04)
--- NOTE | 2018-08-29 17:19 | NUR ---
RN NOTE MAGAN FROM DIALYSIS WAS MESSAGED AND INFORMED ME THAT HEMODIALYSIS WONT BE DONE TILL TOMORROW
--- NOTE | 2018-08-29 18:06 | NUR ---
RN CLOSING NOTE PT IN BED AT LOWEST AND LOCKED POSITION WITH SIDE RAILS UP X2, A/O X4, BREATHING EVEN AND UNLABORED ON RA, NO COMPLAINT OF PAIN OR DISTRESS, IV IS PATENT AND INTACT, GUERRIER IN PLACE AND A RIGHT FEMORAL HD CATH, SAFETY PRECAUTIONS IN PLACE, CALL LIGHT WITHIN REACH, ALL NEEDS ATTENDED TO, WILL ENDORSE TO CPC CODER RN FOR GENESIS.
--- NOTE | 2018-08-29 19:00 | NUR ---
MS RN RECEIVED PT ON BED, A/O X 3, NOT IN ANY FORM OF DISTRESS, RESPIRATIONS EVEN AND UNLABORED, NO SOB NOTED, STABLE CONDITION. SAFETY MEASURES IN PLACE. WILL CONTINUE TO MONITOR.
[2018-08-29 20:00] VITALS: BP 140/72
--- NOTE | 2018-08-29 20:10 | NUR ---
TRANSFERRED TO ROOM 204-1 IN STABLE CONDITION WITH ALL BELONGINGS TAKEN
[2018-08-29 20:30] VITALS: BP 140/72
[2018-08-30] MEDS: IV NS 0.9% 1,000 ML IV PRN (04:59)
--- NOTE | 2018-08-30 06:30 | NUR ---
RN CLOSING NOTE ASLEEP AND EASILY AWAKEN. NOT IN DISTRESS. STABLE, NURSING CARE RENDERED, KEPT CLEAN AND DRY AND COMFORT, NEEDS ATTENDED AND ANTICIPATED. GOOD SKIN CARE PROVIDED. NO COMPLAIN OF PAIN. SAFETY MEASURES IN PLACE, CALL LIGHT WITHIN REACH.
--- NOTE | 2018-08-30 07:55 | NUR ---
MS RN Opening Notes Patient asleep, resting in bed. Alert and oriented x4. No complaints of pain at this time. Respirations even and unlabored on room air, no acute distress noted. Peripheral IV to the left hand 24 gauge, intact, patent and infusing NS at 75 mL/hr. Garcia catheter in place, intact, patent and draining clear, yellow urine. Right femoral hemodiaylsis catheter in place, patent and intact. Updated patient on current plan of care and safety measures. Safety and fall precautions in place: bed in lowest and locked position, side rails up x2, bed alarm on, call light and personal possessions within reach. Patient verbalized understanding. Patient to have hemodialysis today. Will continue to monitor and intervene as needed.
[2018-08-30 08:11] VITALS: BP 126/66
[2018-08-30] MEDS: LACTOBACILLUS RHAMNOSUS GG 1 EACH CAP.SPRINK PO SCH ×2 (08:29→17:53)
[2018-08-30] MEDS: PANTOPRAZOLE 40 MG TABLET.DR PO SCH (08:30)
[2018-08-30] MEDS: SEVELAMER CARBONATE 800 MG TABLET PO SCH ×3 (08:30→17:54)
[2018-08-30] MEDS: HYDROCODONE/APAP 5/325MG 1 EACH TABLET PO PRN (08:36)
[2018-08-30 09:11] LABS: CALCIUM, SERUM 8.1 mg/dL (8.5-10.1); POTASSIUM 4.7 mmol/L (3.5-5.1)
[2018-08-30 09:13] LABS: CREATININE 7.9 mg/dL (0.6-1.3)
[2018-08-30] MEDS ORDERED: LACT1CAP72 PO (11:24)
[2018-08-30] MEDS ORDERED: PANT40TA2 PO (11:24)
[2018-08-30] MEDS ORDERED: SEVE800T7 PO (11:24)
[2018-08-30 16:00] VITALS: BP 130/73
[2018-08-30] MEDS: CEFTRIAXONE 1 G in IV D5W 50 ML IV SCH (16:17)
--- NOTE | 2018-08-30 19:00 | NUR ---
MS RN Closing Notes Patient awake, resting in bed. Alert and oriented x4. No complaints of pain at this time. Respirations even and unlabored on room air, no acute distress noted. Peripheral IV to the left hand 24 gauge, intact, patent and infusing NS at 75 mL/hr. Garcia catheter in place, intact, patent and draining clear, yellow urine. Right femoral hemodialysis catheter in place, patent and intact. Updated patient on current plan of care and safety measures. Safety and fall precautions in place: bed in lowest and locked position, side rails up x2, bed alarm on, call light and personal possessions within reach. Patient verbalized understanding. kettle fry cook operator at bedside. Will endorse to operations supervisor 2nd shift RN for continuity of care.
--- NOTE | 2018-08-30 19:30 | NUR ---
MS/RN RECEIVE PATIENT AWAKE, ALERT, ORIENTED, COMFORTABLE, NO C/O PAIN, NO DISTRESS NOTED, HD IN PROGRESS. WILL MONITOR.
--- NOTE | 2018-08-30 22:35 | NUR ---
MS/RN HD DONE, NO OUTPUT PER HD RN.
[2018-08-31] VITALS (9 sets, daily range): BP systolic 114–143; BP diastolic 53–75
[2018-08-31] MEDS: IV NS 0.9% 1,000 ML IV PRN ×2 (03:16→15:08)
--- NOTE | 2018-08-31 06:10 | NUR ---
MS/RN PATIENT STILL SLEEPING AT THIS TIME, AROUSABLE, BREATHING EVEN AND UNLABORED, CALL LIGHT IN REACH. ALL NEEDS ATTENDED AT THIS TIME. WILL CONTINUE TO MONITOR.
--- NOTE | 2018-08-31 07:15 | NUR ---
RN NOTES PATIENT A/OX4, NO DISTRESS NOTED, GAVE FRESH WATER WITH ICE, BREATHING EVEN AND UNLABORED, NO SOB NOTED, CALL LIGHT WITHIN REACH, WILL CONTINUE TO MONITOR.
[2018-08-31] MEDS: PANTOPRAZOLE 40 MG TABLET.DR PO SCH (08:21)
[2018-08-31] MEDS: LACTOBACILLUS RHAMNOSUS GG 1 EACH CAP.SPRINK PO SCH ×2 (08:21→16:44)
[2018-08-31] MEDS: SEVELAMER CARBONATE 800 MG TABLET PO SCH ×3 (08:21→17:02)
[2018-08-31] MEDS: HYDROCODONE/APAP 5/325MG 1 EACH TABLET PO PRN (08:23)
[2018-08-31 10:49] LABS: APPEARANCE,URINE CLOUDY (CLEAR); BILIRUBIN,URINE NEGATIVE (NEGATIVE); BLOOD, URINE 1+ Ery/uL (NEGATIVE); COLOR,URINE YELLOW (YELLOW); KETONES,URINE NEGATIVE (NEGATIVE); LEUKOCYTE ESTERASE ,URINE 3+ (NEGATIVE); NITRITE, URINE NEGATIVE (NEGATIVE); PROTEIN,URINE 1+ mg/dl (NEGATIVE); UGLUCOSE NEGATIVE (NEGATIVE); UROBILINOGEN,URINE 0.2 EU/dL (0.2)
[2018-08-31 10:59] LABS: WBC,URINE TOO NUMEROUS TO COUN /HPF (0-3)
[2018-08-31 11:00] LABS: BACTERIA,URINE Few /HPF (None Seen); SQUAMOUS EPITHELIAL CELL,UR Few /HPF (None Seen); URINE TOTAL PROTEIN 69.7 mg/dL (0-11.9)
[2018-08-31 11:56] LABS: BASOPHILS # (AUTO) 0.1 /CMM (0.0-0.2); BASOPHILS % (AUTO) 0.9 % (0.0-2.0); EOSINOPHILS % (AUTO) 1.2 % (0.0-6.0); LYMPHOCYTES # (AUTO) 1.1 /CMM (0.8-4.8); LYMPHOCYTES % (AUTO) 7.5 % (20.0-44.0); MEAN CORPUSCULAR HGB CONC 33 g/dl (31.0-36.0); MEAN CORPUSCULAR VOLUME 82 fL (80-96); MONOCYTES # (AUTO) 1.3 /CMM (0.1-1.30); MONOCYTES % (AUTO) 9.3 % (2.0-12.0); NEUTROPHILS # (AUTO) 11.5 /CMM (1.8-8.9); NEUTROPHILS % (AUTO) 81.1 % (43.0-81.0); PLATELET COUNT (AUTO) 279 /CMM (150-450); RED BLOOD CELL COUNT(AUTO) 2.21 MIL/uL (4.5-6.0); WHITE BLOOD COUNT (AUTO) 14.1 K/uL (4.3-11.0)
[2018-08-31 12:09] LABS: ALBUMIN 2.2 g/dL (3.4-5.0); BILIRUBIN,TOTAL 0.1 mg/dL (0.2-1.0); CALCIUM, SERUM 7.6 mg/dL (8.5-10.1); MAGNESIUM 1.8 mg/dL (1.8-2.4); PHOSPHORUS 4.4 mg/dL (2.5-4.9); POTASSIUM 4.3 mmol/L (3.5-5.1); TOTAL PROTEIN, SERUM 7.2 g/dL (6.4-8.2)
[2018-08-31 12:19] LABS: EOSINOPHIL,URINE Few
[2018-08-31 14:09] LABS: HEMATOCRIT 18 % (39-51); HEMOGLOBIN 5.9 g/dL (13.5-17.5)
--- NOTE | 2018-08-31 14:20 | NUR ---
RN NOTES RECEIVED CRITICAL RESULT OF H&H 5.03/30, RELAYED TO DR. SIMMS, AND RECEIVED NEW ORDER TO TRANSFUSE 1 UNIT OF PRBC. ORDER NOTED AND CARRIED OUT. ANA SIGNED BLOOD TRANSFUSION CONSENT.
[2018-08-31 16:28] LABS: EOSINOPHILS % (MANUAL) 2 % (0-4); LYMPHOCYTES % (MANUAL) 9 % (16-48); MONOCYTES % (MANUAL) 9 % (0-11.0); NEUTROPHILS % (MANUAL) 80 (42-76)
[2018-08-31] MEDS: CEFTRIAXONE 1 G in IV D5W 50 ML IV SCH (16:44)
--- NOTE | 2018-08-31 18:23 | NUR ---
ALLI NOTES PER DR. RUIZ KEEP PATIENT NPO AT THIS TIME. Addendum: 08/31/18 at 1837 by TAWANA FRAGA RN CORRECTION: WRONG ENTRY.
--- NOTE | 2018-08-31 18:37 | NUR ---
RN NOTES PATIENT A/OX4, NO DISTRESS NOTED, RECEIVED A CALL FROM BLOOD BANK, BLOOD 1UNIT OF PRBC IS READY. WILL ELECTRIC CUTTER OPERATOR BLOOD SOON. GUERRIER CATHETER PATENT AND DRAINING WITH YELLOW CLOUDY URINE WITH GOOD OUTPUT. VSS, NEEDS ATTENDED AND MET, CALL LIGHT WITHIN REACH, WILL CONTINUE TO MONITOR.
--- NOTE | 2018-08-31 19:20 | NUR ---
MS RN NOTE RECEIVED PT IN BED A/OX4 AND ABLE TO MAKE NEEDS KNOWN. RESPIRATIONS EVEN AND UNLABORED WITH NO ACUTE DISTRESS OR SOB NOTED. L HAND g#24 NS @75ML/HR. WITH GUERRIER CATHETER PATENT AND DRAINING WITH YELLOW URINE AND GOOD OUTPUT. NO COMPLAINTS OF PAIN AT THIS TIME. CALL LIGHT WITHIN REACH. WILL CONTINUE TO MONITOR.
--- NOTE | 2018-08-31 19:29 | NUR ---
RN NOTES BLOOD TRANSFUSION STARTED, NO ADVERSE REACTION NOTED AT THIS TIME. VSS. WILL ENDORSE TO AIRCRAFT NAVIGATOR FOR GENESIS.
--- NOTE | 2018-08-31 22:35 | NUR ---
MS/RN BLOOD TRANSFUSION IS FINISHED, VITAL SIGNS STABLE, AFEBRILE, NO REACTION NOTED.WILL CONTINUE TO MONITOR.
--- NOTE | 2018-09-01 05:22 | NUR ---
MS RN NOTE RECEIVED PT IN BED A/OX4 AND ABLE TO MAKE NEEDS KNOWN. RESPIRATIONS EVEN AND UNLABORED WITH NO ACUTE DISTRESS OR SOB NOTED. Adrian villavicencio#24 NS @75ML/HR. WITH GUERRIER CATHETER PATENT AND DRAINING WITH YELLOW URINE AND GOOD OUTPUT. NO COMPLAINTS OF PAIN AT THIS TIME. CALL LIGHT WITHIN REACH. WILL CONTINUE TO MONITOR. Addendum: 09/01/18 at 522 by ELAN PAZ RN WILL ENDORSE TO ONCOMING NURSE FOR CONTINUATION OF CARE. Addendum: 09/01/18 at 525 by ELAN PAZ RN PT IN BED SLEEPING BUT EASILY AWOKEN VERBALLY OR BY TOUCH. S/P TRANSFUSION PRBC WITH NO ADVERSE REACTIONS NOTED. HD CATH RIGHT FEMORAL.
[2018-09-01 06:32] LABS: BASOPHILS # (AUTO) 0.1 /CMM (0.0-0.2); BASOPHILS % (AUTO) 0.8 % (0.0-2.0); EOSINOPHILS % (AUTO) 1.3 % (0.0-6.0); HEMATOCRIT 22 % (39-51); HEMOGLOBIN 7.3 g/dL (13.5-17.5); LYMPHOCYTES # (AUTO) 1.3 /CMM (0.8-4.8); LYMPHOCYTES % (AUTO) 10.5 % (20.0-44.0); MEAN CORPUSCULAR HGB CONC 34 g/dl (31.0-36.0); MEAN CORPUSCULAR VOLUME 83 fL (80-96); MONOCYTES # (AUTO) 1.1 /CMM (0.1-1.30); MONOCYTES % (AUTO) 8.8 % (2.0-12.0); NEUTROPHILS # (AUTO) 9.4 /CMM (1.8-8.9); NEUTROPHILS % (AUTO) 78.6 % (43.0-81.0); PLATELET COUNT (AUTO) 316 /CMM (150-450); RED BLOOD CELL COUNT(AUTO) 2.66 MIL/uL (4.5-6.0)
[2018-09-01 06:46] LABS: ALBUMIN 2.3 g/dL (3.4-5.0); BILIRUBIN,TOTAL 0.4 mg/dL (0.2-1.0); CALCIUM, SERUM 8.4 mg/dL (8.5-10.1); CREATININE 6.8 mg/dL (0.6-1.3); MAGNESIUM 1.9 mg/dL (1.8-2.4); PHOSPHORUS 5.3 mg/dL (2.5-4.9); POTASSIUM 5.5 mmol/L (3.5-5.1); TOTAL PROTEIN, SERUM 7.5 g/dL (6.4-8.2)
[2018-09-01 07:41] LABS: BAND % (MANUAL) 1 % (0.0-5.0); EOSINOPHILS % (MANUAL) 2 % (0-4); LYMPHOCYTES % (MANUAL) 10 % (16-48); MONOCYTES % (MANUAL) 9 % (0-11.0); NEUTROPHILS % (MANUAL) 78 (42-76)
[2018-09-01 08:00] VITALS: BP 114/73
[2018-09-01] MEDS: LACTOBACILLUS RHAMNOSUS GG 1 EACH CAP.SPRINK PO SCH ×2 (08:57→16:19)
[2018-09-01] MEDS: SEVELAMER CARBONATE 800 MG TABLET PO SCH ×3 (08:57→17:01)
[2018-09-01] MEDS: PANTOPRAZOLE 40 MG TABLET.DR PO SCH (08:57)
[2018-09-01] MEDS: HYDROCODONE/APAP 5/325MG 1 EACH TABLET PO PRN ×2 (09:00→17:01)
[2018-09-01] MEDS ORDERED: LEVO500T90 PO (09:38)
[2018-09-01 11:10] LABS: *SPE A/G RATIO 0.6 (0.7-1.7); *SPE ALBUMIN 2.5 g/dL (2.9-4.4); *SPE ALPHA-1-GLOBULIN 0.4 g/dL (0.0-0.4); *SPE BETA GLOBULIN 0.9 g/dL (0.7-1.3); *SPE GLOBULIN, TOTAL 4.3 g/dL (2.2-3.9); *SPE M-SPIKE Not Observed g/dL (Not Observed); *SPEGAMMA GLOBULIN 1.9 g/dL (0.4-1.8)
[2018-09-01 16:00] VITALS: BP 132/73
[2018-09-01] MEDS: CEFTRIAXONE 1 G in IV D5W 50 ML IV SCH (16:19)
[2018-09-01] MEDS: IV NS 0.9% 1,000 ML IV PRN (16:21)
--- NOTE | 2018-09-01 19:31 | NUR ---
rn closing notes no significant change noted; dialysis on going with HD RN at bs
--- NOTE | 2018-09-01 20:00 | NUR ---
MS/RN RECEIVE PATIENT AWAKE, ALERT, ORIENTED, COMFORTABLE NO C/O PAIN, NO DISTRESS NOTED, CALL LIGHT IN REACH, HD IN PROGRESS. WILL MONITOR.
--- NOTE | 2018-09-01 22:06 | NUR ---
MS/RN HD FINISHED, PATIENT STABLE. WILL CONTINUE TO MONITOR.
[2018-09-01 22:09] VITALS: BP 143/77
[2018-09-01] MEDS: TAMSULOSIN 0.4 MG CAP.SR.24H PO SCH (23:52)
[2018-09-01] MEDS: FINASTERIDE (5 MG) 5 MG TABLET PO SCH (23:52)
--- NOTE | 2018-09-02 01:54 | NUR ---
MS/RN PATIENT IS SLEEPING AT THIS TIME, AROUSABLE, APPEAR COMFORTABLE, NO SIGNS OF DISTRESS NOTED, CALL LIGHT IN REACH, WILL CONTINUE TO MONITOR.
[2018-09-02 05:11] LABS: *PEUR ALBUMIN 23.5 % (.); *PEUR ALPHA-1-GLOBULIN 10.5 % (.); *PEUR ALPHA-2-GLOBULIN 15.9 % (.); *PEUR BETA GLOBULIN 26.4 % (.); *PEUR GAMMA GLOBULIN 23.7 % (.)
[2018-09-02 05:11] LABS: COMPLEMENT C3, SERUM 141 mg/dL (82-167); COMPLEMENT C4, SERUM 30 mg/dL (14-44)
[2018-09-02] MEDS: IV NS 0.9% 1,000 ML IV PRN ×2 (06:15→22:04)
[2018-09-02 06:26] LABS: BASOPHILS # (AUTO) 0.1 /CMM (0.0-0.2); BASOPHILS % (AUTO) 0.9 % (0.0-2.0); EOSINOPHILS % (AUTO) 1.6 % (0.0-6.0); HEMATOCRIT 21 % (39-51); MEAN CORPUSCULAR HGB CONC 33 g/dl (31.0-36.0); MEAN CORPUSCULAR VOLUME 83 fL (80-96); MONOCYTES # (AUTO) 1.1 /CMM (0.1-1.30); MONOCYTES % (AUTO) 9.1 % (2.0-12.0); NEUTROPHILS # (AUTO) 9.6 /CMM (1.8-8.9); NEUTROPHILS % (AUTO) 80.4 % (43.0-81.0); PLATELET COUNT (AUTO) 256 /CMM (150-450); RED BLOOD CELL COUNT(AUTO) 2.47 MIL/uL (4.5-6.0); WHITE BLOOD COUNT (AUTO) 11.9 K/uL (4.3-11.0)
--- NOTE | 2018-09-02 06:40 | NUR ---
MS/RN PATIENT STILL SLEEPING, EASILY AROUSABLE, APPEAR COMFORTABLE, NO SIGNS OF DISTRESS NOTED, CALL LIGHT IN REACH. ALL NEEDS ATTENDED AT THIS TIME, WILL CONTINUE TO MONITOR.
[2018-09-02 06:59] LABS: FREE PSA 1.52 ng/mL (0.00-45); PROSTATE SPECIFIC ANTIGEN SCR 7.14 ng/mL (0.00-4.00)
[2018-09-02 07:05] LABS: HEMOGLOBIN 6.8 g/dL (13.5-17.5)
--- NOTE | 2018-09-02 07:10 | NUR ---
MS/RN RECEIVED A CALL FROM LAB RE: H&H 6.03/02, ENDORSED TO NEXT RN.
[2018-09-02 07:12] LABS: PTH, INTACT 105 pg/mL (15-65)
--- NOTE | 2018-09-02 07:15 | NUR ---
MS RN NOTES PATIENT IN BED ALERT ORIENTED X4. NO ACUTE DISTRESS NOTED, BREATHING UNLABORED. NO SOB NOTED. IV ACCESS PATENT AND INTACT, NO REDNESS OR SWELLING NOTED. GUERRIER CATHETER INTACT, DRAINING WELL. SAFETY MEASURES IN PLACE. CALL LIGHT WITHIN REACH. WILL CONTINUE MONITOR ACCORDINGLY.
[2018-09-02 07:18] LABS: CALCIUM, SERUM 8.2 mg/dL (8.5-10.1); CREATININE 5.7 mg/dL (0.6-1.3); MAGNESIUM 1.8 mg/dL (1.8-2.4); PHOSPHORUS 4.7 mg/dL (2.5-4.9); POTASSIUM 5.1 mmol/L (3.5-5.1)
[2018-09-02 08:00] VITALS: BP 115/59
--- NOTE | 2018-09-02 08:00 | NUR ---
MS RN NOTES NOTIFIED DR KILPATRICK REGARDING HEMOGLOBIN AND HEMATOCRIT RESULT SAID MAY TRANSFUSE WITH NEXT HD, TO SEE PATIENT TODAY.
[2018-09-02] MEDS: PANTOPRAZOLE 40 MG TABLET.DR PO SCH (08:15)
[2018-09-02] MEDS: LACTOBACILLUS RHAMNOSUS GG 1 EACH CAP.SPRINK PO SCH ×2 (08:15→17:41)
[2018-09-02] MEDS: SEVELAMER CARBONATE 800 MG TABLET PO SCH ×3 (08:16→17:42)
[2018-09-02] MEDS: HYDROCODONE/APAP 5/325MG 1 EACH TABLET PO PRN ×2 (08:27→21:03)
[2018-09-02 09:11] LABS: LYMPHOCYTES % (MANUAL) 5 % (16-48); MONOCYTES % (MANUAL) 5 % (0-11.0); NEUTROPHILS % (MANUAL) 90 (42-76)
--- NOTE | 2018-09-02 10:34 | NUR ---
MS RN NOTES SEEN AND EVALUATED BY DR KILPATRICK WITH NEW ORDERS MADE.
[2018-09-02 15:09] LABS: PTH, INTACT 98 pg/mL (15-65)
[2018-09-02 15:56] VITALS: BP 115/59
[2018-09-02] MEDS: CEFTRIAXONE 1 G in IV D5W 50 ML IV SCH (17:42)
--- NOTE | 2018-09-02 19:00 | NUR ---
MS RN NOTES PATIENT IN BED ALERT ORIENTED X4. NO ACUTE DISTRESS NOTED, BREATHING UNLABORED. NO SOB NOTED. IV ACCESS PATENT AND INTACT, NO REDNESS OR SWELLING NOTED. GUERRIER CATHETER INTACT, DRAINING WELL. DUE MEDICATIONS GIVEN NO ASE NOTED. NEEDS ATTENDED AND ANTICIPATED. KEPT CLEAN DRY AND COMFORTABLE.SAFETY MEASURES IN PLACE. CALL LIGHT WITHIN REACH. ENDORSED TO NIGHT NURSE FOR CONTINUITY OF CARE.
--- NOTE | 2018-09-02 19:40 | NUR ---
MS/RN OPENING NOTES PT RECEIVED AWAKE, SITTING UP IN BED. ON ROOM AIR, BREATHING EVEN AND UNLABORED. DENIES SOB, IN NO ACUTE DISTRESS. NOTES DISCOMFORT 5-12/20 TO RIGHT FEMORAL HD CATH. GUERRIER IN PLACE AND DRAINING TO GRAVITY. IV TO LEFT HAND PATENT AND INTACT RUNNING IVF ORDERED. PER DAY SHIFT RN, DR. SIMMS WITH ORDERS TO GIVE 1 UNIT PRBC'S WITH HD. FOR HD TOMORROW. BED IN LOW/LOCKED POSITION WITH CALL LIGHT IN REACH. BILATERAL UPPER SIDE RAILS IN PLACE. WILL CONTINUE TO MONITOR
[2018-09-02 19:56] LABS: APPEARANCE,URINE CLOUDY (CLEAR); BILIRUBIN,URINE NEGATIVE (NEGATIVE); BLOOD, URINE 2+ Ery/uL (NEGATIVE); COLOR,URINE YELLOW (YELLOW); KETONES,URINE NEGATIVE (NEGATIVE); LEUKOCYTE ESTERASE ,URINE 3+ (NEGATIVE); NITRITE, URINE NEGATIVE (NEGATIVE); PROTEIN,URINE TRACE mg/dl (NEGATIVE); UGLUCOSE NEGATIVE (NEGATIVE); UROBILINOGEN,URINE 0.2 EU/dL (0.2)
[2018-09-02 20:00] VITALS: BP 137/79
[2018-09-02 20:02] LABS: BACTERIA,URINE 1+ /HPF (None Seen); SQUAMOUS EPITHELIAL CELL,UR Rare /HPF (None Seen); WBC,URINE TOO NUMEROUS TO COUN /HPF (0-3)
[2018-09-02] MEDS: TAMSULOSIN 0.4 MG CAP.SR.24H PO SCH (21:01)
[2018-09-02] MEDS: FINASTERIDE (5 MG) 5 MG TABLET PO SCH (21:01)
[2018-09-03] VITALS (10 sets, daily range): BP systolic 111–138; BP diastolic 51–77
[2018-09-03 05:14] LABS: *SPE A/G RATIO 0.6 (0.7-1.7); *SPE ALBUMIN 2.5 g/dL (2.9-4.4); *SPE ALPHA-1-GLOBULIN 0.4 g/dL (0.0-0.4); *SPE GLOBULIN, TOTAL 4.4 g/dL (2.2-3.9); *SPE M-SPIKE Not Observed g/dL (Not Observed); *SPEGAMMA GLOBULIN 2.1 g/dL (0.4-1.8)
[2018-09-03 06:54] LABS: BASOPHILS # (AUTO) 0.1 /CMM (0.0-0.2); BASOPHILS % (AUTO) 1.2 % (0.0-2.0); EOSINOPHILS % (AUTO) 2.9 % (0.0-6.0); HEMATOCRIT 21 % (39-51); HEMOGLOBIN 7.1 g/dL (13.5-17.5); LYMPHOCYTES # (AUTO) 1.1 /CMM (0.8-4.8); LYMPHOCYTES % (AUTO) 13.3 % (20.0-44.0); MEAN CORPUSCULAR HGB CONC 34 g/dl (31.0-36.0); MEAN CORPUSCULAR VOLUME 83 fL (80-96); MONOCYTES % (AUTO) 12.3 % (2.0-12.0); NEUTROPHILS % (AUTO) 70.3 % (43.0-81.0); PLATELET COUNT (AUTO) 270 /CMM (150-450); RED BLOOD CELL COUNT(AUTO) 2.51 MIL/uL (4.5-6.0); WHITE BLOOD COUNT (AUTO) 8.5 K/uL (4.3-11.0)
[2018-09-03 06:57] LABS: CALCIUM, SERUM 8.5 mg/dL (8.5-10.1); CREATININE 6.7 mg/dL (0.6-1.3); MAGNESIUM 1.8 mg/dL (1.8-2.4); POTASSIUM 5.3 mmol/L (3.5-5.1)
--- NOTE | 2018-09-03 07:10 | NUR ---
RN OPENING NOTES PT AWAKE AND RESTING IN BED. NO COMPLAINTS OF PAIN, SOB OR DISTRESS AT THIS TIME. PT HAS A GUERRIER CATHETER INTACT AND DRAINING WELL. PT HAS RIGHT FEMORAL HD CATHETER INTACT. PT HAS LEFT HAND #24 RUNNING NS @75 ML/HR. PT DUE FOR HEMODIALYSIS TODAY. WILL ADMINISTER 1 UNIT PRBC WITH HD, ORDERED. SAFETY PRECAUTIONS IN PLACE, BED IN LOWEST LOCKED POSITION, X2 SIDE RAILS UP AND CALL LIGHT WITHIN REACH. WILL CONTINUE TO MONITOR.
--- NOTE | 2018-09-03 07:30 | NUR ---
MS/RN CLOSING NOTES PT AWAKE, SITTING UP IN BED. REMAINS ON ROOM AIR, BREATHING EVEN AND UNLABORED. DENIES SOB AND PAIN AT THIS TIME. GUERRIER IN PLACE AND DRAINING TO GRAVITY. RIGHT FEMORAL HD CATH IN PLACE. IV TO LEFT HAND PATENT AND INTACT RUNNING IVF ORDERED. NO SIGNFICANT CHANGES OVERNIGHT. ALL NEEDS MET. BED REMAINS IN LOW/LOCKED POSITION WITH CALL LIGHT IN REACH, BILATERAL UPPER SIDE RAILS IN PLACE. PT FOR HD TODAY WITH 1 UNIT OF PRBC'S TO INFUSE WHILE HD ONGOING. ENDORSED TO DAY SHIFT RN GENESIS.
[2018-09-03] MEDS: SEVELAMER CARBONATE 800 MG TABLET PO SCH ×3 (08:14→17:38)
[2018-09-03] MEDS: LACTOBACILLUS RHAMNOSUS GG 1 EACH CAP.SPRINK PO SCH ×2 (08:14→17:38)
[2018-09-03] MEDS: PANTOPRAZOLE 40 MG TABLET.DR PO SCH (08:14)
[2018-09-03] MEDS: HYDROCODONE/APAP 5/325MG 1 EACH TABLET PO PRN ×2 (09:39→22:16)
[2018-09-03] MEDS: IV NS 0.9% 1,000 ML IV PRN (11:51)
[2018-09-03] MEDS: CEFTRIAXONE 1 G in IV D5W 50 ML IV SCH (17:39)
--- NOTE | 2018-09-03 19:09 | NUR ---
RN CLOSING NOTES PT AWAKE AND RESTING IN BED. ALL PATIENT NEEDS MET DURING THE SHIFT. PT HAS A GUERRIER CATHETER INTACT AND DRAINING WELL. PT HAS RIGHT FEMORAL HD CATHETER INTACT. PT HAS LEFT HAND #24 RUNNING NS @75 ML/HR. PT S/P 1 UNIT PRBC AND DIALYSIS TODAY. 0 OUTPUT FROM DIALYSIS. NO REACTION FROM BLOOD TRANSFUSION. SAFETY PRECAUTIONS IN PLACE, BED IN LOWEST LOCKED POSITION, X2 SIDE RAILS UP AND CALL LIGHT WITHIN REACH. WILL ENDORSE TO PHOTOSTATIC COPY MAKER NURSE FOR CONTINUITY OF CARE.
--- NOTE | 2018-09-03 19:20 | NUR ---
MS/RN OPENING NOTES PT RESTING COMFORTABLY IN BED. WATCHING TV. ON ROOM AIR, BREATHING EVEN AND UNLABORED. DENIES SOB AND PAIN AT THIS TIME. IV TO LEFT HAND PATENT AND INTACT RUNNING IVF ORDERED. GUERRIER IN PLACE AND DRAINING TO GRAVITY. RIGHT FEMORAL HD CATH IN PLACE, DRESSING C/D/I. S/P HD WITH 1 UNIT PRBC. BED REMAINS IN LOW/LOCKED POSITION WITH CALL LIGHT IN REACH. BILATERAL UPPER SIDE RAILS IN PLACE. WILL CONTINUE TO MONITOR
[2018-09-03] MEDS: FINASTERIDE (5 MG) 5 MG TABLET PO SCH (22:11)
[2018-09-03] MEDS: TAMSULOSIN 0.4 MG CAP.SR.24H PO SCH (22:11)
--- NOTE | 2018-09-04 07:49 | NUR ---
MS/RN CLOSING NOTES PT AWAKE, WATCHING TV. HOB ELEVATED. ON ROOM AIR, BREATHING EVEN AND UNLABORED. DENIES SOB AND PAIN AT THIS TIME. IV TO LEFT HAND PATENT AND INTACT RUNNING IVF ORDERED. GUERRIER IN PLACE AND DRAINING TO GRAVITY. RIGHT FEMORAL HD CATH IN PLACE, DRESSING C/D/I. NO SIGNIFICANT CHANGES OVERNIGHT. ALL NEEDS MET. BED REMAINS IN LOW/LOCKED POSITION WITH CALL LIGHT IN REACH. BILATERAL UPPER SIDE RAILS IN PLACE. ENDORSED TO DAY SHIFT RN GENESIS.
[2018-09-04 08:00] VITALS: BP 123/69
--- NOTE | 2018-09-04 08:03 | NUR ---
RN NOTES PATIENT A/OX4, NAD, VSS, DENIES PAIN AT THIS TIME, HD DONE YESTERDAY, NEEDS ATTENDED AND MET, CALL LIGHT WITHIN REACH, WILL CONTINUE TO MONITOR.
[2018-09-04 08:06] LABS: BASOPHILS # (AUTO) 0.1 /CMM (0.0-0.2); BASOPHILS % (AUTO) 1.2 % (0.0-2.0); EOSINOPHILS % (AUTO) 3.2 % (0.0-6.0); HEMATOCRIT 23 % (39-51); HEMOGLOBIN 7.8 g/dL (13.5-17.5); LYMPHOCYTES # (AUTO) 1.1 /CMM (0.8-4.8); LYMPHOCYTES % (AUTO) 13.3 % (20.0-44.0); MEAN CORPUSCULAR HGB CONC 34 g/dl (31.0-36.0); MEAN CORPUSCULAR VOLUME 83 fL (80-96); MONOCYTES # (AUTO) 0.8 /CMM (0.1-1.30); MONOCYTES % (AUTO) 10.2 % (2.0-12.0); NEUTROPHILS % (AUTO) 72.1 % (43.0-81.0); PLATELET COUNT (AUTO) 265 /CMM (150-450); WHITE BLOOD COUNT (AUTO) 8.3 K/uL (4.3-11.0)
[2018-09-04 08:16] LABS: CALCIUM, SERUM 8.3 mg/dL (8.5-10.1); CREATININE 5.1 mg/dL (0.6-1.3); MAGNESIUM 1.8 mg/dL (1.8-2.4); PHOSPHORUS 4.7 mg/dL (2.5-4.9); POTASSIUM 5.1 mmol/L (3.5-5.1)
[2018-09-04] MEDS: SEVELAMER CARBONATE 800 MG TABLET PO SCH ×3 (08:19→17:36)
[2018-09-04] MEDS: PANTOPRAZOLE 40 MG TABLET.DR PO SCH (08:19)
[2018-09-04] MEDS: LACTOBACILLUS RHAMNOSUS GG 1 EACH CAP.SPRINK PO SCH ×2 (08:19→16:45)
[2018-09-04] MEDS: HYDROCODONE/APAP 5/325MG 1 EACH TABLET PO PRN ×2 (08:22→20:47)
[2018-09-04 16:00] VITALS: BP 123/66
[2018-09-04] MEDS: CEFTRIAXONE 1 G in IV D5W 50 ML IV SCH (16:38)
--- NOTE | 2018-09-04 18:38 | NUR ---
RN NOTES PATIENT IN NAD, VSS, BREATHING EVEN AND UNLABORED, NO SOB NOTED, GUERRIER CATHETER PATENT AND DRAINING WELL, ALL NEEDS ATTENDED AND MET, CALL LIGHT WITHIN REACH, WILL ENDORSE TO FORCE ADJUSTMENT SUPERVISOR FOR GENESIS.
--- NOTE | 2018-09-04 19:25 | NUR ---
RN INITIAL NOTES: RECEIVED REPORT FROM TAWANA CARSON. PT IN BED, AWAKE, A/O X3, ON RA RESPIRATION EVEN AND UNLABORED, IV ACCESS PATENT AND FLUSHING WELL, ON HL. S/P HD 09/03/18, NO OUTPUT JUST CLEANING. GUERRIER CATHETER IN PLACED DRAINING INTO YELLOW COLORED URINE. SAFETY PRECAUTIONS FOR FALL INITIATED, CALL LIGHT IN REACH, WILL CONTINUE MONITORING PT.
[2018-09-04 20:00] VITALS: BP 128/69
--- NOTE | 2018-09-04 20:47 | NUR ---
PRN NORCO: PT C/O BURNING SENSATION IN THE PENILE AREA DUE TO CATHETER, REQUESTING FOR HIS NORCO, PS 7/, PRN NORCO 5/325 MG TAB PO ADMINISTERED AT THIS TIME, WILL CONTINUE TO MONITOR AND REASSESS
[2018-09-04] MEDS: TAMSULOSIN 0.4 MG CAP.SR.24H PO SCH (22:10)
[2018-09-04] MEDS: FINASTERIDE (5 MG) 5 MG TABLET PO SCH (22:11)
--- NOTE | 2018-09-05 07:13 | NUR ---
RN CLOSING NOTES: PT AWAKE, A/O X3, ON RA RESPIRATION EVEN AND UNLABORED, IV ACCESS PATENT AND FLUSHING WELL, ON HL. VS REMAINS STABLE, NEEDS ATTENDED. GUERRIER CATHETER REMAINS IN PLACED. SAFETY PRECAUTIONS FOR FALL INITIATED, CALL LIGHT IN REACH, WILL ENDORSE TO DAY RN FOR GENESIS.
--- NOTE | 2018-09-05 07:40 | NUR ---
RN NOTES PATIENT A/OX4, BREATHING EVEN AND UNLABORED, NAD, KEPT COMFORTABLE, DVT PUMP IN PLACED, GUERRIER CATH PATENT AND DRAINING, NEEDS ATTENDED, CALL LIGHT WITHIN REACH, WILL CONTINUE TO MONITOR.
[2018-09-05 08:00] VITALS: BP 138/72
[2018-09-05] MEDS: LACTOBACILLUS RHAMNOSUS GG 1 EACH CAP.SPRINK PO SCH ×2 (08:29→16:57)
[2018-09-05] MEDS: HYDROCODONE/APAP 5/325MG 1 EACH TABLET PO PRN ×3 (08:29→21:24)
[2018-09-05] MEDS: SEVELAMER CARBONATE 800 MG TABLET PO SCH ×3 (08:29→17:03)
[2018-09-05] MEDS: PANTOPRAZOLE 40 MG TABLET.DR PO SCH (08:29)
[2018-09-05 08:44] LABS: BASOPHILS # (AUTO) 0.1 /CMM (0.0-0.2); BASOPHILS % (AUTO) 1.2 % (0.0-2.0); EOSINOPHILS % (AUTO) 4.2 % (0.0-6.0); HEMATOCRIT 26 % (39-51); HEMOGLOBIN 8.3 g/dL (13.5-17.5); LYMPHOCYTES # (AUTO) 1.1 /CMM (0.8-4.8); LYMPHOCYTES % (AUTO) 15.4 % (20.0-44.0); MEAN CORPUSCULAR HGB CONC 33 g/dl (31.0-36.0); MEAN CORPUSCULAR VOLUME 84 fL (80-96); MONOCYTES % (AUTO) 13.1 % (2.0-12.0); NEUTROPHILS # (AUTO) 4.8 /CMM (1.8-8.9); NEUTROPHILS % (AUTO) 66.1 % (43.0-81.0); PLATELET COUNT (AUTO) 280 /CMM (150-450); RED BLOOD CELL COUNT(AUTO) 3.03 MIL/uL (4.5-6.0); WHITE BLOOD COUNT (AUTO) 7.3 K/uL (4.3-11.0)
[2018-09-05 08:50] LABS: CALCIUM, SERUM 8.6 mg/dL (8.5-10.1); CREATININE 6.2 mg/dL (0.6-1.3); MAGNESIUM 2.1 mg/dL (1.8-2.4); PHOSPHORUS 5.5 mg/dL (2.5-4.9); POTASSIUM 4.9 mmol/L (3.5-5.1)
[2018-09-05 16:00] VITALS: BP 125/68
[2018-09-05] MEDS: CEFTRIAXONE 1 G in IV D5W 50 ML IV SCH (16:57)
--- NOTE | 2018-09-05 18:39 | NUR ---
RN NOTES PATIENT JUST COMPLETED HEMODIALYSIS, NO UF. PATIENT REMAINS STABLE, NO DISTRESS NOTED AT THIS TIME, PATIENT APPEARS TO BE SCRATCHING BLE, PER PATIENT HE'S ITCHY. LOTION APPLIED AND PATIENT STATED HE FEELS BETTER. GUERRIER CATHETER PATENT AND DRAINING WELL. DR. SIMMS STARTED PATIENT ON FLUID RESTRICTION OF 1000ML/DAY, PATIENT AWARE AND VERBALIZED UNDERSTANDING. ALL NEEDS ATTENDED AND MET, CALL LIGHT WITHIN REACH, WILL ENDORSE TO BILINGUAL SALES REPRESENTATIVE FOR GENESIS.
--- NOTE | 2018-09-05 19:20 | NUR ---
RN INITIAL NOTES: RECEIVED REPORT FROM TAWANA CARSON. PT IN BED, AWAKE, A/O X3, ON RA RESPIRATION EVEN AND UNLABORED, S/P HD 09/04/18, IV ACCESS PATENT AND FLUSHING WELL, ON HL. GUERRIER CATHETER IN PLACED DRAINING INTO YELLOW COLORED URINE. SAFETY PRECAUTIONS FOR FALL INITIATED, CALL LIGHT IN REACH, WILL CONTINUE MONITORING PT.
[2018-09-05 20:38] VITALS: BP 122/71
[2018-09-05] MEDS: TAMSULOSIN 0.4 MG CAP.SR.24H PO SCH (21:24)
[2018-09-05] MEDS: FINASTERIDE (5 MG) 5 MG TABLET PO SCH (21:24)
--- NOTE | 2018-09-05 21:25 | NUR ---
PRN NORCO: PT C/O GENERALIZED PAIN PS 7/10 REQUESTING NORCO, PRN NORCO 5/325 MG TAB PO ADMINISTERED AT THIS TIME, WILL CONTINUE TO MONITOR AND REASSESS
--- NOTE | 2018-09-06 05:25 | NUR ---
RN NOTES: TRANSFER PT TO ROOM 322-2, ALL BELONGING SENT WITH PT UPON TRANSFER
[2018-09-06 06:41] LABS: CALCIUM, SERUM 8.6 mg/dL (8.5-10.1); CREATININE 5.2 mg/dL (0.6-1.3); POTASSIUM 5.5 mmol/L (3.5-5.1)
--- NOTE | 2018-09-06 06:48 | NUR ---
RN CLOSING NOTES: PT REMAINS TO HAVE GUERRIER CATHETER BAG EMPTIED AT THIS TIME. IV ACCESS REMAINS PATENT AND FLUSHING WELL, ON HL. HD CATHETER REMAINS IN PLACED. VS REMAINS STABLE, NEEDS ATTENDED. SAFETY PRECAUTIONS FOR FALL REMAINS ENGAGED, CALL LIGHT IN REACH, WILL ENDORSE TO DAY RN FOR CONTINUITY OF CARE.
[2018-09-06 06:49] LABS: BASOPHILS # (AUTO) 0.1 /CMM (0.0-0.2); BASOPHILS % (AUTO) 1.5 % (0.0-2.0); EOSINOPHILS % (AUTO) 4.5 % (0.0-6.0); HEMATOCRIT 26 % (39-51); HEMOGLOBIN 8.5 g/dL (13.5-17.5); LYMPHOCYTES # (AUTO) 1.6 /CMM (0.8-4.8); LYMPHOCYTES % (AUTO) 21.2 % (20.0-44.0); MEAN CORPUSCULAR HGB CONC 33 g/dl (31.0-36.0); MEAN CORPUSCULAR VOLUME 85 fL (80-96); MONOCYTES % (AUTO) 13.2 % (2.0-12.0); NEUTROPHILS # (AUTO) 4.5 /CMM (1.8-8.9); NEUTROPHILS % (AUTO) 59.6 % (43.0-81.0); PLATELET COUNT (AUTO) 200 /CMM (150-450); RED BLOOD CELL COUNT(AUTO) 3.09 MIL/uL (4.5-6.0); WHITE BLOOD COUNT (AUTO) 7.5 K/uL (4.3-11.0)
[2018-09-06 06:52] LABS: MAGNESIUM 1.9 mg/dL (1.8-2.4); PHOSPHORUS 4.8 mg/dL (2.5-4.9)
--- NOTE | 2018-09-06 07:10 | NUR ---
RN OPENING NOTES RECEIVED PATIENT IN BED RESTING. PATIENT A/OX4, BREATHING EVEN AND UNLABORED, NOT IN ANY FORM OF DISTRESS, NO SOB. DENIED PAIN OR DISCOMFORT AT THIS TIME. IV ACCESS INTACT AND PATENT. KEPT COMFORTABLE, DVT PUMP IN PLACED, GUERRIER CATH PATENT AND DRAINING. BED IN LOW/LOCKED POSITION, SIDERAIL UPX2, CALL LIGHT WITHIN REACH, WILL CONTINUE TO MONITOR.
[2018-09-06 08:00] VITALS: BP 137/76
[2018-09-06] MEDS: PANTOPRAZOLE 40 MG TABLET.DR PO SCH (09:41)
[2018-09-06] MEDS: LACTOBACILLUS RHAMNOSUS GG 1 EACH CAP.SPRINK PO SCH ×2 (09:41→17:22)
[2018-09-06] MEDS: SEVELAMER CARBONATE 800 MG TABLET PO SCH ×3 (09:42→17:22)
[2018-09-06] MEDS: HYDROCODONE/APAP 5/325MG 1 EACH TABLET PO PRN ×3 (09:45→21:33)
[2018-09-06 16:00] VITALS: BP 128/74
[2018-09-06] MEDS: CEFTRIAXONE 1 G in IV D5W 50 ML IV SCH (17:22)
--- NOTE | 2018-09-06 19:30 | NUR ---
RN CLOSING NOTES PATIENT IN STABLE CONDITION. ALL NEEDS ATTENDED AND PROVIDED. ALL DUE MEDICATIONS GIVEN ORDERED. ASSISTED WITH ADLS. KEPT PATIENT SAFE AND COMFORTABLE. BED IN LOW/LOCKED POSITION, SIDERAILS UPX2, CALL LIGHT IN REACH. ENDORSED TO NIGHT RN FOR GENESIS.
[2018-09-06 20:00] VITALS: BP 135/75
--- NOTE | 2018-09-06 20:21 | NUR ---
RN MS OPENING NOTES RECEIVED PT IN BED, AWAKE ALERT ORIENTED X4, BREATHING EVEN AND UNLABORED ON ROOM AIR, NO COUGH OR CONGESTION. NO COMPLAINT OF PAIN OR DISCOMFORT AT THIS TIME. IV ACCESS ON THE L HAND G 24 SL PATENT AND FLUSHING. NPO AFTER MIDNIGHT FOR PORT-A-CATH PLACEMENT BED IN LOWEST LOCKED POSITION, CALL LIGHT WITHIN REACH AT ALL TIMES, WILL CONTINUE TO MONITOR
[2018-09-06] MEDS: FINASTERIDE (5 MG) 5 MG TABLET PO SCH (21:14)
[2018-09-06] MEDS: TAMSULOSIN 0.4 MG CAP.SR.24H PO SCH (21:14)
[2018-09-07 06:43] LABS: CALCIUM, SERUM 8.8 mg/dL (8.5-10.1); CREATININE 6.1 mg/dL (0.6-1.3); POTASSIUM 5.6 mmol/L (3.5-5.1)
--- NOTE | 2018-09-07 06:44 | NUR ---
PT REMAINS IN BED, AWAKE ALERT ORIENTED X4, BREATHING EVEN AND UNLABORED ON ROOM AIR, NO COUGH OR CONGESTION. NO COMPLAINT OF PAIN OR DISCOMFORT AT THIS TIME. IV ACCESS ON THE L HAND G 24 SL AND L FA #20G SL PATENT AND FLUSHING. NPO AFTER MIDNIGHT FOR PORT-A-CATH PLACEMENT BED IN LOWEST LOCKED POSITION, CALL LIGHT WITHIN REACH AT ALL TIMES, WILL ENDORSE TO DAY NURSE FOR GENESIS.
--- NOTE | 2018-09-07 06:47 | NUR ---
PT TAKEN DOWN TO ER. Addendum: 09/07/18 at 0648 by JOVANNY CASAREZ RN *OR
[2018-09-07] MEDS ORDERED: ANESTHESIA TRAY IN PYXIS 1 EA TRAY MC ONE (06:57)
[2018-09-07] MEDS ORDERED: LIDOCAINE HCL/PF 1% 30 ML SDV ONE (06:57)
[2018-09-07] MEDS ORDERED: HEPARIN SODIUM, PORCINE 1,000 UNIT/ML VIAL ONE (06:57)
[2018-09-07] MEDS: PANTOPRAZOLE 40 MG TABLET.DR PO SCH (07:30)
[2018-09-07 08:00] VITALS: BP 157/82
--- NOTE | 2018-09-07 08:15 | NUR ---
RN-NOTES PATIENT BACK FRO SURGERY UNIT AWAKE,ALERT X4 NO ACUTE DISTRESS NOTED. NO BLEEDING NOTED ON RIGHT GROIN WILL CONT. MONITORING.
--- NOTE | 2018-09-07 10:14 | NUR ---
WOUND CARE CONSULT: PT REFUSED SKIN ASSESSMENT. WILL SEE PRN. CURRENT EVELYNE SCORE IS 20.
[2018-09-07] MEDS: SEVELAMER CARBONATE 800 MG TABLET PO SCH ×3 (10:18→18:04)
[2018-09-07] MEDS: LACTOBACILLUS RHAMNOSUS GG 1 EACH CAP.SPRINK PO SCH ×2 (10:18→18:04)
--- NOTE | 2018-09-07 10:26 | NUR ---
WOUND CARE CONSULT: PT NOW STATES WANTS SKIN ASSESSMENT. PT NOTED TO HAVE SCRATCH FRIAS ON HIS LOWER LEGS AND SPOTTY RASH TO BACK AND BUTTOCKS. PT STATES THAT HE SCRATCHED HIS LEGS BUT DENIES ANY ITCHING AT THIS TIME. DEFER TO MD FOR RASH. WILL SEE PRN. CURRENT EVELYNE SCORE IS 20.
[2018-09-07] MEDS: HYDROCODONE/APAP 5/325MG 1 EACH TABLET PO PRN ×2 (10:34→14:52)
--- NOTE | 2018-09-07 10:35 | NUR ---
RN-NOTES patient requesting for pain medication for his neck pain. [place] 5/325mg 1 tab. p.o given as prn order.
--- NOTE | 2018-09-07 12:42 | NUR ---
Social service consult requested by Dr. Gallardo for homelessness. Pt. is a 58 year old male who was admitted to [facility] on 08/23/18 for Hyperkalemia and Renal failure. SANTHOSH and nurse case manager Angy Sarabia met with pt. bedside. Pt. is alert and oriented x 4. Pt. appears clean and well groomed. Pt. is a and states he is homeless and has been for a while. Pt. states he has been living on the streets. Pt. informed SW he had met with a nurse case manager from [facility] with a last name Jj that he was suppose to meet up before he got sick. Pt. did not have the contact number for Jj. SANTHOSH to send referral eligibility request to [facility]. Pt. is a new dialysis pt. and is awaiting a chair time at the local dialysis center [facility]. Pt. receives $250/ month of VA benefits. Pt. states he will be applying for SSDI since he will be on dialysis on a regular basis. Pt. denies drinking alcohol or using any drugs. Pt. stated he will need clothes upon discharge. Pt. has his won shoes. SW to give pt. clothing prior to discharge. SANTHOSH offered pt. [facility] placement and will give him all appropriate resources upon discharge.
--- NOTE | 2018-09-07 14:53 | NUR ---
RN-NOTES Patient requesting for pain medication for his right chest cath site. [place] 5/325mg 1 tab. p.o given as prn order.
[2018-09-07 16:00] VITALS: BP 123/74
[2018-09-07] MEDS: CEFTRIAXONE 1 G in IV D5W 50 ML IV SCH (17:01)
--- NOTE | 2018-09-07 18:40 | NUR ---
RN-NOTES PATIENT AWAKE,ALERT WATCHING TV, NO ACUTE DISTRESS NOTED .NO BLEEDING NOTED ON RIGHT CHEST CATH AND S/P L FEMORAL CATH REMOVAL. IV SITE L FA INTACT,NO COMPLICATION NOTED ON IV SITE. GUERRIER CATH INTACT WITH CLEAR YELLOW URINE OUTPUT .ALL NEEDS ATTENDED AND ANTICIPATED. WILL ENDORSE TO INCOMING NURSE FOR CONTINUITY OF CARE.
--- NOTE | 2018-09-07 20:02 | NUR ---
RN MS OPENING NOTES RECEIVED PT IN BED, AWAKE ALERT ORIENTED X4, BREATHING EVEN AND UNLABORED ON ROOM AIR, NO COUGH OR CONGESTION. NO COMPLAINT OF PAIN OR DISCOMFORT AT THIS TIME. IV ACCESS ON THE L HAND G 24 SL AND L FA 20G PATENT AND FLUSHING. RIGHT UPPER CHEST CALL PERM-A-CATH IN PLACE. BED IN LOWEST LOCKED POSITION, CALL LIGHT WITHIN REACH AT ALL TIMES, WILL CONTINUE TO MONITOR
[2018-09-07 20:16] VITALS: BP 129/73
[2018-09-07] MEDS: TAMSULOSIN 0.4 MG CAP.SR.24H PO SCH (21:44)
[2018-09-07] MEDS: FINASTERIDE (5 MG) 5 MG TABLET PO SCH (21:44)
--- NOTE | 2018-09-08 06:14 | NUR ---
RN MS CLOSING NOTES PT REMAINS IN BED, AWAKE ALERT ORIENTED X4, BREATHING EVEN AND UNLABORED ON ROOM AIR, NO COUGH OR CONGESTION. NO COMPLAINT OF PAIN OR DISCOMFORT AT THIS TIME. IV ACCESS ON THE L HAND G 24 SL AND L FA #20G SL, RIGHT CHEST WALL PERM-A-CATH IN PLACE FOR HD. PATENT AND FLUSHING. BED IN LOWEST LOCKED POSITION, CALL LIGHT WITHIN REACH AT ALL TIMES, WILL ENDORSE TO DAY NURSE FOR GENESIS.
--- NOTE | 2018-09-08 07:25 | NUR ---
MS/RN NOTE THE PATIENT ALERT AND ORIENTED X4. IN ROOM AND DENIES SOB. RESPIRATION REGULAR AND UNLABORED. DENIES PAIN. THE PATIENT IN NO APPARENT DISTRESS. RIGHT CHEST HD CATH IN PLACE AND DRESSING INTACT. GUERRIER CATH DRAINING CLEAR, YELLOW COLOR URINE WITH NO FOUL ODOR. LEFT HAND G 24 PATENT AND SALINE LOCKED. LFA G 20 PATENT AND SALINE LOCKED. BED LOW AND LOCKED. SIDE RAILS UP X3. CALL LIGHT WITHIN REACH. WILL CONTINUE TO MONITOR.
[2018-09-08 08:00] VITALS: BP_SYST 127; BP_SYST 90; BP_DIAS 48; BP_DIAS 70
[2018-09-08] MEDS: SEVELAMER CARBONATE 800 MG TABLET PO SCH ×3 (08:39→17:33)
[2018-09-08] MEDS: LACTOBACILLUS RHAMNOSUS GG 1 EACH CAP.SPRINK PO SCH ×2 (08:39→17:33)
[2018-09-08] MEDS: HYDROCODONE/APAP 5/325MG 1 EACH TABLET PO PRN ×2 (08:40→17:47)
[2018-09-08] MEDS: PANTOPRAZOLE 40 MG TABLET.DR PO SCH (08:43)
--- NOTE | 2018-09-08 12:37 | NUR ---
SANTHOSH called Trang at [facility] and informed her about pt. requiring services. SANTHOSH informed her that pt. is a and homeless. Trang requested to speak with the pt. SANTHOSH met with pt. bedside and had pt. speak with Trang. SANTHOSH received a call from [place] outreach advisor Nawaf Elizondo informing SW that pt. is eligible for VA services especially due to his recent medical need for dialysis. He requested for case management to [place] [phone] so that pt. can be transferred to the [place] Emergency room. SANTHOSH relayed message to rn case manager Angy Sarabia who will follow up with SANTHOSH Boothe.
[2018-09-08 16:00] VITALS: BP 141/86
[2018-09-08] MEDS: CEFTRIAXONE 1 G in IV D5W 50 ML IV SCH (17:39)
--- NOTE | 2018-09-08 18:46 | NUR ---
MS/RN NOTE THE PATIENT ALERT AND ORIENTED X4. IN ROOM AIR AND DENIES SOB. RESPIRATION REGULAR AND UNLABORED. DENIES PAIN AT THIS TIME. LEFT HAND G 24 PATENT AND SALINE LOCKED. LFA G 20 PATENT AND IV ANTIBIOTIC INFUSING PER ORDER. NO S/S INFILTRATION NOTED. RIGHT CHEST HD CATH IN PLACE WITH DRESSING INTACT. RECEIVED ORDER FROM DR FOSTER TO DISCONTINUE GUERRIER CATH. GUERRIER CATH IS DISCONTINUED. NO BLADDER DISTENSION NOTED. GOOD AND GENTLE SKIN CARE RENDERED. KEPT CLEAN AND COMFORTABLE. BED LOW AND LOCKED. SIDE RAILS UP X3. CALL LIGHT WITHIN REACH. WILL CONTINUE TO MONITOR.
--- NOTE | 2018-09-08 19:30 | NUR ---
RECEIVED PATIENT IN BED AWAKE. AO X 3, ABLE TO MAKE NEEDS KNOWN. NO ACUTE DISTRESS NOTED. DENIES ANY PAIN AT THIS TIME. IV SITE PATENT, INTACT; FLUSHED. RIGHT PERMACATH INTACT. SAFETY REMINDERS GIVEN. ON LOW BED WITH BILATERAL UPPER SIDE RAILS UP. CALL [place]LL WITHIN EASY REACH. WILL CONTINUE TO MONITOR.
[2018-09-08 20:00] VITALS: BP 126/72
[2018-09-08] MEDS: FINASTERIDE (5 MG) 5 MG TABLET PO SCH (21:12)
[2018-09-08] MEDS: TAMSULOSIN 0.4 MG CAP.SR.24H PO SCH (21:12)
--- NOTE | 2018-09-09 06:39 | NUR ---
PATIENT ASLEEP, EASILY AROUSABLE. RESPIRATIONS EVEN. NO SIGNS OF PAIN NOTED. DUE MEDS GIVEN WITH NO ASE NOTED. NEEDS ATTENDED. SAFETY PRECAUTIONS AND COMFORT MEASURES IN PLACE. WILL GIVE REPORT TO DAY SHIFT FOR CONTINUITY OF CARE.
[2018-09-09 08:00] VITALS: BP 129/73
--- NOTE | 2018-09-09 08:00 | NUR ---
MS/RN NOTE THE PATIENT ALERT AND ORIENTED X4. IN ROOM AIR AND DENIES SOB. RESPIRATION REGULAR AND UNLABORED. DENIES PAIN AT THIS TIME. LEFT HAND G 24 PATENT AND SALINE LOCKED. LFA G 20 PATENT .NO S/S INFILTRATION NOTED. RIGHT CHEST HD CATH IN PLACE WITH DRESSING INTACT. PT VOIDED 2X LAST NIGHT POST REMOVAL OF GUERRIER CATH.NO BLADDER DISTENSION NOTED.WITH VERY GOOD APPETITE ALWAYS REQUESTING FOR EXTRA FOOD OR SNACKS.RENAL DIET TEACHING AND FLUID RESTRICTION TEACHING GIVEN. GOOD AND GENTLE SKIN CARE RENDERED. KEPT CLEAN AND COMFORTABLE. BED LOW AND LOCKED. SIDE RAILS UP X3. CALL LIGHT WITHIN REACH. WILL CONTINUE TO MONITOR.
[2018-09-09] MEDS: LEVOFLOXACIN (500MG) 500 MG TABLET PO SCH (09:20)
[2018-09-09] MEDS: PANTOPRAZOLE 40 MG TABLET.DR PO SCH (09:20)
[2018-09-09] MEDS: SEVELAMER CARBONATE 800 MG TABLET PO SCH ×3 (09:21→16:56)
[2018-09-09] MEDS: LACTOBACILLUS RHAMNOSUS GG 1 EACH CAP.SPRINK PO SCH ×2 (09:35→16:56)
--- NOTE | 2018-09-09 12:00 | NUR ---
HEMODIALYSIS PROCEDURE DONE TODAY WITH 1.5 LITERS OUTPUT WITH STABLE V/S. BP 128/71 HR 84. PT TOLERATED WELL.
[2018-09-09 16:00] VITALS: BP 126/79
--- NOTE | 2018-09-09 18:32 | NUR ---
PT WATCHING TV DENYING ANY PAIN OR DISTRESS.CALL LIGHT PLACED WITHIN REACH.
--- NOTE | 2018-09-09 19:25 | NUR ---
MS RN PT RECEIVE IN BED. A/O X 3. NOT IN ANY FORM OF DISTRESS, RESPIRATIONS EVEN AND UNLABORED, NO SOB NOTED, STABLE CONDITION. SAFETY MEASURES IN PLACE. WILL CONTINUE TO MONITOR.
[2018-09-09 20:00] VITALS: BP 130/81
[2018-09-09] MEDS: HYDROCODONE/APAP 5/325MG 1 EACH TABLET PO PRN (20:58)
[2018-09-09] MEDS: FINASTERIDE (5 MG) 5 MG TABLET PO SCH (21:00)
[2018-09-09] MEDS: TAMSULOSIN 0.4 MG CAP.SR.24H PO SCH (21:00)
--- NOTE | 2018-09-10 06:25 | NUR ---
MS RN CLOSING NOTE ASLEEP AND EASILY AWAKEN. IN NO APPARENT DISTRESS OR DISCOMFORT AT THIS TIME. RESPIRATIONS EVEN AND UNLABORED. DENIES PAIN AND SOB AT THIS TIME. PATIENT KEPT CLEAN AND COMFORTABLE. ALL NEEDS ATTENDED. SAFETY MEASURES IN PLACE, BED IN LOW LOCKED POSITION, CALL LIGHT WITHIN EASY REACH. ENDORSE TO NEXT SHIFT CONTINUITY OF CARE.
--- NOTE | 2018-09-10 07:00 | NUR ---
MS RN NOTES PATIENT IN BED ALERT ORIENTED X 3. NO ACUTE DISTRESS NOTED. BREATHING UNLABORED. NO SOB NOTED. DENIED ANY PAIN. IV ACCESS PATENT AND INTACT, NO REDNESS OR SWELLING NOTED. SAFETY MEASURES IN PLACE. CALL LIGHT WITHIN REACH. WILL CONTINUE TO MONITOR ACCORDINGLY.
[2018-09-10 08:00] VITALS: BP 130/80
[2018-09-10] MEDS: LACTOBACILLUS RHAMNOSUS GG 1 EACH CAP.SPRINK PO SCH ×2 (08:12→17:31)
[2018-09-10] MEDS: SEVELAMER CARBONATE 800 MG TABLET PO SCH ×3 (08:12→17:32)
[2018-09-10] MEDS: PANTOPRAZOLE 40 MG TABLET.DR PO SCH (08:12)
[2018-09-10] MEDS: HYDROCODONE/APAP 5/325MG 1 EACH TABLET PO PRN ×2 (09:25→20:26)
[2018-09-10 16:00] VITALS: BP 134/75
--- NOTE | 2018-09-10 19:00 | NUR ---
MS RN NOTES PATIENT IN BED ALERT ORIENTED X 3. NO ACUTE DISTRESS NOTED. BREATHING UNLABORED. NO SOB NOTED. DENIED ANY PAIN. IV ACCESS PATENT AND INTACT, NO REDNESS OR SWELLING NOTED. DUE MEDICATIONS GIVEN NO ASE. NEEDS ATTENDED AND ANTICIPATED. KEPT CLEAN DRY AND COMFORTABLE. SAFETY MEASURES IN PLACE. CALL LIGHT WITHIN REACH. ENDORSED TO NIGHT NURSE FOR CONTINUITY OF CARE.
--- NOTE | 2018-09-10 19:27 | NUR ---
MS RN AWAKE IN BED WATCHING TV, STABLE. RESPIRATIONS EVEN AND UNLABORED, NO SOB NOTED,SAFETY MEASURES IN PLACE. WILL CONTINUE TO MONITOR.
[2018-09-10 20:00] VITALS: BP 136/69
[2018-09-10 20:30] VITALS: BP 136/69
[2018-09-10] MEDS: FINASTERIDE (5 MG) 5 MG TABLET PO SCH (21:04)
[2018-09-10] MEDS: TAMSULOSIN 0.4 MG CAP.SR.24H PO SCH (21:05)
--- NOTE | 2018-09-11 06:03 | NUR ---
MS RN CLOSING NOTE PT ASLEEP AND EASILY AWAKEN, RESPIRATIONS EVEN AND UNLABORED. 02 SAT AT 100% R.A. STABLE AND NOT IN DISTRESS. NEEDS ATTENDED AND ANTICIPATED. KEPT CLEAN AND DRY AND COMFORT, SAFETY MEASURES IN PLACE, BED IN LOW LOCKED POSITION, CALL LIGHT WITHIN EASY REACH. ENDORSE TO NEXT SHIFT CONTINUITY OF CARE
[2018-09-11 08:00] VITALS: BP 129/77
[2018-09-11] MEDS: SEVELAMER CARBONATE 800 MG TABLET PO SCH ×3 (08:16→17:31)
[2018-09-11] MEDS: PANTOPRAZOLE 40 MG TABLET.DR PO SCH (08:16)
[2018-09-11] MEDS: LACTOBACILLUS RHAMNOSUS GG 1 EACH CAP.SPRINK PO SCH ×2 (08:16→17:31)
[2018-09-11] MEDS: LEVOFLOXACIN (500MG) 500 MG TABLET PO SCH (08:16)
--- NOTE | 2018-09-11 11:50 | NUR ---
MS RN NOTES SEEN AND EVALUATED BY DR JA KNOX WITH NEW ORDERS MADE, NOTED AND CARRIED OUT.
[2018-09-11 16:00] VITALS: BP 122/73
[2018-09-11] MEDS: HYDROCODONE/APAP 5/325MG 1 EACH TABLET PO PRN ×2 (17:35→21:50)
--- NOTE | 2018-09-11 19:22 | NUR ---
MS RN AWAKE WATCHING TV, TOLERATING ROOM AIR 98%. RESPIRATIONS EVEN AND UNLABORED, NO SOB NOTED, NO DISTRESS, SAFETY MEASURES IN PLACE. WILL CONTINUE TO MONITOR.
[2018-09-11 20:00] VITALS: BP 132/75
[2018-09-11] MEDS: FINASTERIDE (5 MG) 5 MG TABLET PO SCH (21:08)
[2018-09-11] MEDS: TAMSULOSIN 0.4 MG CAP.SR.24H PO SCH (21:08)
--- NOTE | 2018-09-12 06:12 | NUR ---
MS RN CLOSING NOTE AWAKE WATCHING TV, 02 SAT AT 98% R.A. STABLE AND NOT IN DISTRESS. RESPIRATIONS EVEN AND UNLABORED. NO COMPLAIN OF PAIN, KEPT CLEAN AND DRY, COMFORTABLE. NEEDS ATTENDED AND ANTICIPATED. SAFETY MEASURES IN PLACE. WILL ENDORSE TO THE NEXT SHIFT.
[2018-09-12 07:20] LABS: BASOPHILS # (AUTO) 0.1 /CMM (0.0-0.2); BASOPHILS % (AUTO) 1.9 % (0.0-2.0); EOSINOPHILS % (AUTO) 5.6 % (0.0-6.0); HEMATOCRIT 22 % (39-51); HEMOGLOBIN 7.4 g/dL (13.5-17.5); LYMPHOCYTES # (AUTO) 1.4 /CMM (0.8-4.8); LYMPHOCYTES % (AUTO) 24.5 % (20.0-44.0); MEAN CORPUSCULAR HGB CONC 33 g/dl (31.0-36.0); MEAN CORPUSCULAR VOLUME 84 fL (80-96); MONOCYTES # (AUTO) 0.7 /CMM (0.1-1.30); MONOCYTES % (AUTO) 12.2 % (2.0-12.0); NEUTROPHILS # (AUTO) 3.2 /CMM (1.8-8.9); NEUTROPHILS % (AUTO) 55.8 % (43.0-81.0); PLATELET COUNT (AUTO) 309 /CMM (150-450); RED BLOOD CELL COUNT(AUTO) 2.66 MIL/uL (4.5-6.0); WHITE BLOOD COUNT (AUTO) 5.8 K/uL (4.3-11.0)
[2018-09-12 07:39] LABS: ALBUMIN 2.6 g/dL (3.4-5.0); BILIRUBIN,TOTAL 0.1 mg/dL (0.2-1.0); CALCIUM, SERUM 8.7 mg/dL (8.5-10.1); CREATININE 6.4 mg/dL (0.6-1.3); MAGNESIUM 2.1 mg/dL (1.8-2.4); PHOSPHORUS 5.6 mg/dL (2.5-4.9); POTASSIUM 5.2 mmol/L (3.5-5.1)
[2018-09-12 08:00] VITALS: BP 122/72
[2018-09-12] MEDS: SEVELAMER CARBONATE 800 MG TABLET PO SCH ×3 (08:30→17:48)
[2018-09-12] MEDS: PANTOPRAZOLE 40 MG TABLET.DR PO SCH (08:30)
[2018-09-12] MEDS: LACTOBACILLUS RHAMNOSUS GG 1 EACH CAP.SPRINK PO SCH ×2 (08:30→17:47)
[2018-09-12 10:18] LABS: BAND % (MANUAL) 1 % (0.0-5.0); EOSINOPHILS % (MANUAL) 5 % (0-4); LYMPHOCYTES % (MANUAL) 21 % (16-48); MONOCYTES % (MANUAL) 14 % (0-11.0); MYELOCYTES % 1 % (0-0); NEUTROPHILS % (MANUAL) 58 (42-76)
[2018-09-12 16:00] VITALS: BP 135/75
--- NOTE | 2018-09-12 19:00 | NUR ---
MS RN NOTES PATIENT IN BED ALERT ORIENTED X 3. NO ACUTE DISTRESS NOTED. BREATHING UNLABORED. NO SOB NOTED. DENIED ANY PAIN. IV ACCESS PATENT AND INTACT, NO REDNESS OR SWELLING NOTED. DUE MEDICATIONS GIVEN, NO ASE NOTED, NEEDS ATTENDED AND ANTICIPATED. KEPT CLEAN DRY AND COMFORTABLE. SAFETY MEASURES IN PLACE. CALL LIGHT WITHIN REACH. ENDORSED TO NIGHT NURSE FOR CONTINUITY OF CARE
--- NOTE | 2018-09-12 19:05 | NUR ---
MS RN NOTES RECEIVED PT IN BED AWAKE, ALERT ORIENTED X 3 AND ABLE TO MAKE NEEDS KNOWN. NO S/S OF ACUTE DISTRESS OR SOB NOTED. BREATHING UNLABORED. PT DENIES PAIN AT THIS TIME. IV ACCESS PATENT AND INTACT WITH NO REDNESS OR SWELLING NOTED. CALL LIGHT WITHIN REACH. WILL CONTINUE TO MONITOR.
[2018-09-12 21:10] VITALS: BP 141/74
[2018-09-12] MEDS: FINASTERIDE (5 MG) 5 MG TABLET PO SCH (22:44)
[2018-09-12] MEDS: TAMSULOSIN 0.4 MG CAP.SR.24H PO SCH (22:44)
--- NOTE | 2018-09-13 06:43 | NUR ---
MS RN NOTES PT IN BED ASLEEP BUT EASILY AWOKEN VERBALLY OR BY TOUCH. PT ALERT ORIENTED X 3 AND ABLE TO MAKE NEEDS KNOWN. NO S/S OF ACUTE DISTRESS OR SOB NOTED. BREATHING UNLABORED. PT DENIES PAIN AT THIS TIME. PT STABLE THROUGHOUT SHIFT. IV ACCESS PATENT AND INTACT WITH NO REDNESS OR SWELLING NOTED. CALL LIGHT WITHIN REACH. WILL ENDORSE TO ONCOMING NURSE FOR CONTINUATION OF CARE.
--- NOTE | 2018-09-13 07:30 | NUR ---
m/s medical library assistant: initial assessment received pt in bed awake, a/o4. no c/o pain or any discomfort. refused skin assessment. for hd tx today and for d'c planning, pt verbalized understanding. instructed to call for assistance. will continue to monitor.
[2018-09-13 08:00] VITALS: BP 137/81
[2018-09-13] MEDS: SEVELAMER CARBONATE 800 MG TABLET PO SCH ×3 (08:30→17:18)
[2018-09-13] MEDS: PANTOPRAZOLE 40 MG TABLET.DR PO SCH (08:31)
[2018-09-13] MEDS: LEVOFLOXACIN (500MG) 500 MG TABLET PO SCH (08:31)
[2018-09-13] MEDS: LACTOBACILLUS RHAMNOSUS GG 1 EACH CAP.SPRINK PO SCH ×2 (08:31→17:18)
[2018-09-13] MEDS: HYDROCODONE/APAP 5/325MG 1 EACH TABLET PO PRN ×2 (08:33→20:37)
--- NOTE | 2018-09-13 10:24 | NUR ---
SANTHOSH contacted Nawaf Elizondo, outreach community residential care facility manager for the [place] to follow up regarding placement for the pt. SANTHOSH left a voicemail message for Mr. Mccracken requesting a call back.
--- NOTE | 2018-09-13 11:00 | NUR ---
m/s quantitative researcher: nephro f/u seen by dr. salinas at this time. pt still waiting on placement, awaiting authorization. pt aware. instructed to call for assistance. will continue to monitor.
--- NOTE | 2018-09-13 14:00 | NUR ---
m/s ophthalmic technician: notes resting comfortable in bed. still awaiting on placement per social sciences chair, pt aware. no c/o pain or any discomfort. instructed to call for assistance. will monitor.
--- NOTE | 2018-09-13 14:26 | NUR ---
SANTHOSH received a call from Mr. Elizondo .informing SANTHOSH that he will have a SW from the VA contact her.
--- NOTE | 2018-09-13 14:58 | NUR ---
SANTHOSH received a voicemail from [place] squadron worker Won Muhammad requesting a call back. SANTHOSH contacted Won and inquired regarding placement. Won informed SANTHOSH to send pt. to the [facility] located at [address] [place] [address] in [place] and have pt. take the VA bus that will transport pt. to the [facility] in [facility]. Won informed SANTHOSH that he will make a note on pt' s chart with the VA regarding pt. going to take the VA bus from [place] to [facility].
[2018-09-13 16:00] VITALS: BP 134/76
--- NOTE | 2018-09-13 18:30 | NUR ---
m/s line supply: notes resting comfortable in bed with no distress noted. awaiting placement. instructed to call for assistance. will continue to monitor.
--- NOTE | 2018-09-13 19:00 | NUR ---
m/s practice assistant: notes report given to lauren (rn) for continuity of care.
--- NOTE | 2018-09-13 19:30 | NUR ---
MS/RN RECEIVE PATIENT AWAKE, ALERT, ORIENTE, COMFORTABLE, NO C/O PAIN, NO DISTRESS NOTED, CALL LIGHT IN REACH. WILL MONITOR.
[2018-09-13 20:00] VITALS: BP 136/77
[2018-09-13] MEDS: TAMSULOSIN 0.4 MG CAP.SR.24H PO SCH (22:19)
[2018-09-13] MEDS: FINASTERIDE (5 MG) 5 MG TABLET PO SCH (22:19)
--- NOTE | 2018-09-13 23:50 | NUR ---
MS/RN PATIENT IS SLEEPING AT THIS TIME, APPEAR COMFORTABLE, BREATHING EVEN AND UNLABORED, CALL LIGHT IN REACH. WILL CONTINUE TO MONITOR.
--- NOTE | 2018-09-14 06:07 | NUR ---
MS/RN PATIENT IS AWAKE, ALERT, ORIENTED, COMFORTABLE, NO CHANGE IN CONDITION. ALL NEEDS ATTENDED AT THIS TIME, WILL CONTINUE TO MONITOR.
[2018-09-14] MEDS: SEVELAMER CARBONATE 800 MG TABLET PO SCH ×3 (07:51→17:07)
[2018-09-14] MEDS: PANTOPRAZOLE 40 MG TABLET.DR PO SCH (07:51)
--- NOTE | 2018-09-14 08:00 | NUR ---
MS/RN - Assessment Patient in bed awake, alert and oriented x 4, no complaints overnight, denies pain, stable on room air. Patient scheduled for HD treatment today and for possible discharge. Saline lock on the left hand and LFA both are patent and intact. Awaiting VA rep to call CM regarding possible placement. Will continue with current medical management.
[2018-09-14 08:42] VITALS: BP 126/80
[2018-09-14] MEDS: LACTOBACILLUS RHAMNOSUS GG 1 EACH CAP.SPRINK PO SCH ×2 (08:45→17:07)
[2018-09-14] MEDS: HYDROCODONE/APAP 5/325MG 1 EACH TABLET PO PRN ×3 (09:22→22:13)
--- NOTE | 2018-09-14 14:00 | NUR ---
MS/RN - MRSA surveillance MRSA swab collected on both nares for hospital stay 21 days and greater with negative result.
--- NOTE | 2018-09-14 14:29 | NUR ---
SANTHOSH left a voicemail message for [place] solid waste collection worker Won Muhammad requesting a call back. Addendum: 09/14/18 at 1431 by DAYNA TREVIZO SANTHOSH gave pt. a pair of pants and a shirt. Pt. stated he has a pair of shoes and two jackets. Addendum: 09/14/18 at 1443 by DAYNA TREVIZO SANTHOSH was informed by clinical case manager Angy Sarabia that she did hear back from Dr. Salcido, head of the homeless Program from [place] [phone] who informed her that a clinical case manager will follow up her.
[2018-09-14 16:00] VITALS: BP_SYST 146; BP_SYST 164; BP_DIAS 62; BP_DIAS 86
--- NOTE | 2018-09-14 17:13 | NUR ---
MS/RN - End of shift summary No new events seen. Patient resting comfortably, remain afebrile, stable on room air, for HD treatment tonight. Still waiting for VA regarding placement. Will endorse to the night nurse accordingly.
--- NOTE | 2018-09-14 19:20 | NUR ---
MS RN OPENING NOTES Received patient in bed, alert, oriented x 4. Breathing even and unlabored. Dialysis nurse currently at bedside. No complaints as of this time. Call bernal within reach. Bed in low, locked position. Will continue to monitor accordingly
[2018-09-14 20:00] VITALS: BP 141/81
[2018-09-14 20:08] VITALS: BP 155/86
[2018-09-14 21:55] VITALS: BP 125/72
--- NOTE | 2018-09-14 21:55 | NUR ---
RN NOTES Hemodialysis done. As per Dialysis nurse, no output. V/S: BP- 125/72, HR- 72, RR- 18, SPO2- 97%
[2018-09-14] MEDS: TAMSULOSIN 0.4 MG CAP.SR.24H PO SCH (22:09)
[2018-09-14] MEDS: FINASTERIDE (5 MG) 5 MG TABLET PO SCH (22:10)
[2018-09-14] MEDS: ZOLPIDEM TARTRATE 5 MG TABLET PO PRN (23:24)
--- NOTE | 2018-09-15 06:48 | NUR ---
MS RN CLOSING NOTES Patient resting in bed, alert, oriented x 4. No complaints as of this time. No acute changes overnight. All needs attended to. Call bernal within reach. Bed in low, locked position. Will endorse GENESIS to oncoming RN
[2018-09-15 06:56] LABS: BASOPHILS # (AUTO) 0.1 /CMM (0.0-0.2); BASOPHILS % (AUTO) 1.3 % (0.0-2.0); EOSINOPHILS % (AUTO) 5.9 % (0.0-6.0); HEMATOCRIT 21 % (39-51); HEMOGLOBIN 7.3 g/dL (13.5-17.5); LYMPHOCYTES # (AUTO) 1.7 /CMM (0.8-4.8); LYMPHOCYTES % (AUTO) 27.4 % (20.0-44.0); MEAN CORPUSCULAR HGB CONC 34 g/dl (31.0-36.0); MEAN CORPUSCULAR VOLUME 83 fL (80-96); MONOCYTES # (AUTO) 0.8 /CMM (0.1-1.30); NEUTROPHILS # (AUTO) 3.3 /CMM (1.8-8.9); NEUTROPHILS % (AUTO) 52.4 % (43.0-81.0); PLATELET COUNT (AUTO) 385 /CMM (150-450); RED BLOOD CELL COUNT(AUTO) 2.58 MIL/uL (4.5-6.0); WHITE BLOOD COUNT (AUTO) 6.4 K/uL (4.3-11.0)
[2018-09-15 07:12] LABS: CALCIUM, SERUM 8.8 mg/dL (8.5-10.1); CREATININE 7.2 mg/dL (0.6-1.3); MAGNESIUM 2.4 mg/dL (1.8-2.4); PHOSPHORUS 6.9 mg/dL (2.5-4.9)
--- NOTE | 2018-09-15 07:25 | NUR ---
RN OPENING NOTES RECEIVED PATIENT IN BED RESTING. A/OX4, ABLE TO MAKE NEEDS KNOWN. NOT IN ANY FORM OF DISTRESS, NO SOB. DENIED PAIN OR DISCOMFORT AT THIS TIME. IV ACCESS INTACT AND PATENT. PERMACATH ON R CHEST WALL NOTED WITH C/D/I DRESSING. KEPT PATIENT SAFE AND COMFORTABLE. BED IN LOW/LOCKED POSITION, SIDERAILS UPX2, CALL LIGHT IN REACH. WILL CONTINUE TO MONIOTR ACCORDINGLY.
[2018-09-15] MEDS: LACTOBACILLUS RHAMNOSUS GG 1 EACH CAP.SPRINK PO SCH (08:07)
[2018-09-15] MEDS: SEVELAMER CARBONATE 800 MG TABLET PO SCH (08:08)
[2018-09-15] MEDS: PANTOPRAZOLE 40 MG TABLET.DR PO SCH (08:08)
[2018-09-15] MEDS: LEVOFLOXACIN (500MG) 500 MG TABLET PO SCH (08:08)
[2018-09-15] MEDS: HYDROCODONE/APAP 5/325MG 1 EACH TABLET PO PRN (08:16)
[2018-09-15 08:19] VITALS: BP 124/72
[2018-09-15 08:25] LABS: LYMPHOCYTES % (MANUAL) 26 % (16-48)
[2018-09-15 08:26] LABS: EOSINOPHILS % (MANUAL) 8 % (0-4); MONOCYTES % (MANUAL) 18 % (0-11.0); MYELOCYTES % 1 % (0-0); NEUTROPHILS % (MANUAL) 47 (42-76)
--- NOTE | 2018-09-15 13:06 | NUR ---
SANTHOSH was informed by case repairer Angy Sarabia that she [facility] a call from the [facility] and was informed that pt. is not service connected and cannot go to the [facility]. SANTHOSH and Angy Sarabia met with pt. bedside to inform him about the [facility] stating he is not service connected. Pt. states, that is incorrect and stated, he will look into it. Pt. states he is resourceful and will find his way in the community. Pt. is ambulatory with a steady gait. SANTHOSH gave pt. the following resources: [facility] [id number], [facility] Homeless Resource Directory; [facility] Homeless [id number] [place], [place] [address] ;[facility] [address] [facility], [address] [place], [place] [address]Ftmd Number: ;[facility] [id number] [facility] [place], [place] [id number] ; [facility] [place], [place] [id number] ;Healthcare Clinics for Homeless patients:[facility] [facility], [address] [place] [address]. [place] [facility] [address] [facility] [address] [place]. [place] [address]gp[facility] [address] [facility] [place] [address] Hours 8AM-4:30PM Walk-ins allowed. Pt. was given a pair of pants, clothes, money for bus transportation, a sandwich and milk to go. Homeless Patient Waiver Form was signed by the pt.and placed in pt's chart. No other social service needs are requested at this time. YMA Cam and ALLI Kearney were notified of pt's discharge plan.
--- NOTE | 2018-09-15 13:29 | NUR ---
DISCHARGED PATIENT IN STABLE CONDITION. BUS TOKENS GIVEN (BARRETT). [facility]ING TO [facility]. ACCOMPANIED BY CLARI KAHN TO THE LOBBY. DISCHARGE INSTRUCTIONS GIVEN, VERBALIZED UNDERSTANDING, INSTRUCTIONS FOR HD GIVEN, SCHEDULED MWF AT 5PM AT [facility], CONTACT AND INFO WAS GIVEN. PAPERWORK AND PRESCRIPTIONS GIVEN. ALL BELONGINGS RETURNED. PERMACATH IN PLACE FOR HD, DRESSING C/D/I. REMOVED IV ACCESS, APPLIED PRESSURE, NO BLEEDING, NO COMPLICATIONS. REMOVED NAME BAND. REFUSED PHOTO.
== END 2018-09-15 13:15 | disposition home or self-care (01) | DRG 720 ==
LOC: ER 12:07 → ICU 13:58 → MED 08-24 18:05 → TELE 08-24 18:12 → MED 08-25 09:39 → MEDSG2 08-29 18:44 → MED 09-06 05:51
PROVIDERS: ATTEND Student in an Organized Health Care Education/Training Program
PROC: 05HM33Z Insertion of Infusion Device into Right Internal Jugular Vein, Percutaneous Approach (ICD-10-PCS; principal; 2018-09-07)
PROC: B543ZZA Ultrasonography of Right Jugular Veins, Guidance (ICD-10-PCS; principal; 2018-09-07)
PROC: 0JHD3XZ Insertion of Tunneled Vascular Access Device into Right Upper Arm Subcutaneous Tissue and Fascia, Percutaneous Approach (ICD-10-PCS; principal; 2018-09-07)
DX: A41.9 Sepsis, unspecified organism (principal); N17.0 Acute kidney failure with tubular necrosis; E87.2 Acidosis; E83.39 Other disorders of phosphorus metabolism; B19.10 Unspecified viral hepatitis B without hepatic coma; D50.9 Iron deficiency anemia, unspecified; F10.20 Alcohol dependence, uncomplicated; F17.200 Nicotine dependence, unspecified, uncomplicated; E87.1 Hypo-osmolality and hyponatremia; N13.30 Unspecified hydronephrosis; E87.5 Hyperkalemia; D64.9 Anemia, unspecified; Z59.0 Homelessness; D47.3 Essential (hemorrhagic) thrombocythemia; N39.0 Urinary tract infection, site not specified; K59.00 Constipation, unspecified; Z82.5 Family history of asthma and other chronic lower respiratory diseases; Z82.49 Family history of ischemic heart disease and other diseases of the circulatory system; F39 Unspecified mood [affective] disorder; R33.8 Other retention of urine; N40.1 Benign prostatic hyperplasia with lower urinary tract symptoms; N10 Acute pyelonephritis; L74.0 Miliaria rubra; N41.9 Inflammatory disease of prostate, unspecified; Z86.19 Personal history of other infectious and parasitic diseases; B96.20 Unspecified Escherichia coli [E. coli] as the cause of diseases classified elsewhere; Y90.9 Presence of alcohol in blood, level not specified; F12.90 Cannabis use, unspecified, uncomplicated; N13.9 Obstructive and reflux uropathy, unspecified; F41.9 Anxiety disorder, unspecified
CPT/HCPCS: 36415; 71045-TC; 76770-TC; 80048-TC; 80053-TC; 80061-TC; 80076-TC; 80202-TC; 81000-TC; 82550-TC; 82570-TC; 83605-TC; 83735-TC; 83970; 84100-TC; 84153-TC; 84154-TC; 84155; 84155-TC; 84156; 84165; 84166; 84300-TC; 84443-TC; 85025-TC; 85652-TC; 86704; 86705; 86706; 86803; 86850-TC; 86921-TC; 87040-TC; 87081-TC; 87086-TC; 87186-TC; 87340; 87400; 87806; 90935-TC; A6402; C1750; G0378; J0692; J0696; J1644; J1815; J1940; J3370; J3490; J7030; J7040; J7050; J7060; P9016-BL

== ENCOUNTER 2018-09-17 20:05 | Emergency (ER) | payer MEDICAID ==
[~2018-09-17] VITALS: Ht 180.3 cm; Wt 77.6 kg
[~2018-09-17 20:05] MED LIST: LACT1CAP72 PO; LEVO500T90 PO; PANT40TA2 PO; SEVE800T7 PO
--- NOTE | 2018-09-17 20:18 | NUR ---
PT BIBS. C/O "MIDSTERNAL NONRADIATING CHEST PAIN AFTER DYALISIS" -SOB -N/V -ACUTE DISTRESS. 11/19 PAIN. -DIZZINESS. PT AOX4.
[2018-09-17 20:42] LABS: BASOPHILS # (AUTO) 0.1 /CMM (0.0-0.2); HEMOGLOBIN 7.3 g/dL (13.5-17.5); MEAN CORPUSCULAR HGB CONC 33 g/dl (31.0-36.0); MONOCYTES # (AUTO) 1.3 /CMM (0.1-1.30)
[2018-09-17 20:45] LABS: BASOPHILS % (AUTO) 0.8 % (0.0-2.0); EOSINOPHILS % (AUTO) 2.4 % (0.0-6.0); HEMATOCRIT 22 % (39-51); LYMPHOCYTES # (AUTO) 1.6 /CMM (0.8-4.8); LYMPHOCYTES % (AUTO) 14.4 % (20.0-44.0); MEAN CORPUSCULAR VOLUME 83 fL (80-96); MONOCYTES % (AUTO) 11.2 % (2.0-12.0); NEUTROPHILS # (AUTO) 8.1 /CMM (1.8-8.9); NEUTROPHILS % (AUTO) 71.2 % (43.0-81.0); PLATELET COUNT (AUTO) 427 /CMM (150-450); RED BLOOD CELL COUNT(AUTO) 2.69 MIL/uL (4.5-6.0); WHITE BLOOD COUNT (AUTO) 11.3 K/uL (4.3-11.0)
[2018-09-17 20:55] LABS: CALCIUM, SERUM 9.1 mg/dL (8.5-10.1); CARBON DIOXIDE 30 mmol/L (21-32); CHLORIDE 101 mmol/L (98-107); CREATININE 4.3 mg/dL (0.6-1.3); GLUCOSE 114 mg/dL (74-106); POTASSIUM 4.4 mmol/L (3.5-5.1); SODIUM SERUM 136 mmol/L (136-145); UREA NITROGEN, BLOOD 39 mg/dL (7-18)
[2018-09-17 21:01] LABS: ALANINE AMINOTRANSFERASE 17 U/L (12-78); ALKALINE PHOSPHATASE 84 U/L (46-116); ASPARTATE AMINOTRANSFERASE 16 U/L (15-37); BILIRUBIN,DIRECT 0.1 mg/dL (0.0-0.2); BILIRUBIN,TOTAL 0.1 mg/dL (0.2-1.0); LIPASE 192 U/L (73-393); TOTAL PROTEIN, SERUM 8.7 g/dL (6.4-8.2)
[2018-09-17 22:20] VITALS: BP 162/91
== END 2018-09-17 22:21 | disposition home or self-care (01) ==
LOC: ER 20:07
DX: R10.13 Epigastric pain (principal); I12.0 Hypertensive chronic kidney disease with stage 5 chronic kidney disease or end stage renal disease; N18.6 End stage renal disease; K21.9 Gastro-esophageal reflux disease without esophagitis; F20.9 Schizophrenia, unspecified; F41.9 Anxiety disorder, unspecified; Z99.2 Dependence on renal dialysis; Z87.891 Personal history of nicotine dependence; Z98.890 Other specified postprocedural states
CPT/HCPCS: 36415; 71045-TC; 80048-TC; 80076-TC; 83690-TC; 84484-TC; 85025-TC; 85730-TC

== ENCOUNTER 2018-09-19 08:30 | Emergency (ER) | payer MEDICAID ==
[~2018-09-19] VITALS: Ht 175.3 cm; Wt 78.0 kg
[2018-09-19 08:40] VITALS: BP 126/65
--- NOTE | 2018-09-19 08:47 | NUR ---
SEEN AND EXAMINED BY DR. SNELL.
== END 2018-09-19 10:03 | disposition home or self-care (01) ==
LOC: ER 08:30
DX: R59.1 Generalized enlarged lymph nodes (principal); I12.0 Hypertensive chronic kidney disease with stage 5 chronic kidney disease or end stage renal disease; N18.6 End stage renal disease; F17.200 Nicotine dependence, unspecified, uncomplicated; Z98.890 Other specified postprocedural states
CPT/HCPCS: 70360-TC

== ENCOUNTER 2018-11-23 14:05 | Inpatient (IN) | payer MEDICAID, OTHER ==
[~2018-11-23] VITALS: Ht 180.3 cm; Wt 77.3 kg
--- NOTE | 2018-11-23 14:15 | NUR ---
PT Dialysis Catheter [place] "went to dialysis center today was told its NOT working" PT IS AAOX4, NOT IN RESPIRATORY DISTRESS, HOOKED TO MONITOR, KEPT RESTED AND COMFORTABLE, WILL CONTINUE TO MONITOR.
--- NOTE | 2018-11-23 14:20 | NUR ---
SEEN AND EXAMINED BY DR. HARPER.
[2018-11-23 14:36] LABS: BASOPHILS # (AUTO) 0.1 /CMM (0.0-0.2); BASOPHILS % (AUTO) 1.1 % (0.0-2.0); EOSINOPHILS % (AUTO) 4.5 % (0.0-6.0); HEMATOCRIT 45 % (39-51); HEMOGLOBIN 14.8 g/dL (13.5-17.5); LYMPHOCYTES # (AUTO) 1.6 /CMM (0.8-4.8); LYMPHOCYTES % (AUTO) 22.3 % (20.0-44.0); MEAN CORPUSCULAR HGB CONC 33 g/dl (31.0-36.0); MEAN CORPUSCULAR VOLUME 90 fL (80-96); MONOCYTES # (AUTO) 0.5 /CMM (0.1-1.30); MONOCYTES % (AUTO) 7.3 % (2.0-12.0); NEUTROPHILS # (AUTO) 4.8 /CMM (1.8-8.9); NEUTROPHILS % (AUTO) 64.8 % (43.0-81.0); PLATELET COUNT (AUTO) 218 /CMM (150-450); RED BLOOD CELL COUNT(AUTO) 4.99 MIL/uL (4.5-6.0); WHITE BLOOD COUNT (AUTO) 7.4 K/uL (4.3-11.0)
--- NOTE | 2018-11-23 14:38 | NUR ---
IV LINE ESTABLISHED, LABS DRAWNED AND SENT TO LAB.
[2018-11-23 14:45] LABS: CALCIUM, SERUM 8.5 mg/dL (8.5-10.1); POTASSIUM 5.1 mmol/L (3.5-5.1)
--- NOTE | 2018-11-23 16:01 | NUR ---
311-1 MEDSURG RENAL FAILURE, CISCO HUNTLEY
--- NOTE | 2018-11-23 16:19 | NUR ---
PER ADMITING PT IS NOT AUTHORIZED FOR ADMISSION, CURRENTLY COMMUNICATING WITH PT'S INSURANCE REGARDING TRANSFER
--- NOTE | 2018-11-23 16:32 | NUR ---
PER CASE MANAGMENT PEER TO PEER NEEDED [phone] DR SRIKANTH FRANKLIN
[2018-11-23] MEDS ORDERED: CLONIDINE HCL 0.1 MG TABLET ONE (17:14)
[2018-11-23] MEDS ORDERED: CLONIDINE HCL 0.1 MG TABLET PO ONE (17:30)
--- NOTE | 2018-11-23 17:35 | NUR ---
REPORT GIVEN TO ALLI MERCER FOR GENESIS.
--- NOTE | 2018-11-23 18:40 | NUR ---
MS RN NOTES RECEIVED PATIENT VIA WHEELCHAIR. ALERT, ORIENTED X3, DENIES ANY PAIN OR DISCOMFORT. PATIENT WITH PROTCATH ON RIGHT UPPER CHEST WHICH HAS MALFUNCTION AT THE DIALYSIS CENTER. HE WAS DIRECTED TO ER. DR. MANCUSO HAS BEEN CONTACTED BY ER TO CONSULT. CARROLL ORIENTED TO ROOM. CALL LIGHT WITHIN REACH. BED IN LOW LOCKED POSITION. WILL ENDORSE CARE TO PM SHIFT.
--- NOTE | 2018-11-23 19:34 | NUR ---
RN OPENING NOTES RECEIVED PATIENT FROM ALLI HIGH. PATIENT WAS ADMITTED AT 1845. STILL AWAITING DOCTORS ORDERS. PATIENT WAS AWAKE, RESTING COMFORTABLY IN BED. PATIENT IS A/O X3. PATIENT HAS NO SIGNS OF RESPIRATORY DISTRESS. PATIENT DENIES SHORTNESS OF BREATH. PATIENT DENIES ANY PAIN OR DISCOMFORT AT THIS TIME. SAFETY PRECAUTIONS IMPLEMENTED. CALL LIGHT WITHIN REACH. WILL CONTINUE TO MONITOR PATIENT THROUGHOUT THE SHIFT.
[2018-11-23 20:00] VITALS: BP 171/105
--- NOTE | 2018-11-23 20:30 | NUR ---
RN NOTES PATIENT REFUSED FULL BODY SKIN ASSESSMENT AND PHOTOS TO BE TAKEN AT THIS TIME.
[2018-11-23 20:32] VITALS: BP 171/105
[2018-11-23 20:33] VITALS: BP 175/108
[2018-11-23] MEDS ORDERED: SEVE800T8 PO (21:42)
[2018-11-23] MEDS ORDERED: hydrALAZINE HCL 50 MG TABLET PO STA (21:46)
[2018-11-23] MEDS ORDERED: HYDROCODONE/APAP 5/325MG 1 EACH TABLET PO PRN (22:00)
[2018-11-23] MEDS ORDERED: ACETAMINOPHEN 325 MG TABLET PO PRN (22:00)
[2018-11-23] MEDS ORDERED: ONDANSETRON HCL/PF 4 MG/2 ML VIAL IVP PRN (22:00)
[2018-11-23] MEDS ORDERED: LEVOFLOXACIN (500MG) 500 MG TABLET PO SCH (22:00)
[2018-11-23] MEDS ORDERED: Z GUARD REMEDY 2 OZ OINT TP PRN (22:00)
[2018-11-23] MEDS ORDERED: ZOLPIDEM TARTRATE 5 MG TABLET PO PRN (22:00)
[2018-11-24 04:37] LABS: BASOPHILS % (AUTO) 0.4 % (0.0-2.0); EOSINOPHILS % (AUTO) 4.6 % (0.0-6.0); HEMATOCRIT 45 % (39-51); HEMOGLOBIN 14.7 g/dL (13.5-17.5); LYMPHOCYTES # (AUTO) 1.4 /CMM (0.8-4.8); LYMPHOCYTES % (AUTO) 17.2 % (20.0-44.0); MEAN CORPUSCULAR HGB CONC 33 g/dl (31.0-36.0); MEAN CORPUSCULAR VOLUME 89 fL (80-96); MONOCYTES # (AUTO) 0.6 /CMM (0.1-1.30); MONOCYTES % (AUTO) 8.1 % (2.0-12.0); NEUTROPHILS # (AUTO) 5.6 /CMM (1.8-8.9); NEUTROPHILS % (AUTO) 69.7 % (43.0-81.0); PLATELET COUNT (AUTO) 233 /CMM (150-450); RED BLOOD CELL COUNT(AUTO) 5.09 MIL/uL (4.5-6.0)
[2018-11-24 04:43] LABS: ALBUMIN 3.4 g/dL (3.4-5.0); BILIRUBIN,TOTAL 0.3 mg/dL (0.2-1.0); CALCIUM, SERUM 8.6 mg/dL (8.5-10.1); CREATININE 8.2 mg/dL (0.6-1.3); MAGNESIUM 2.4 mg/dL (1.8-2.4); PHOSPHORUS 6.1 mg/dL (2.5-4.9); POTASSIUM 6.1 mmol/L (3.5-5.1); TOTAL PROTEIN, SERUM 8.2 g/dL (6.4-8.2)
[2018-11-24 04:58] LABS: THYROID STIMULATING HORMONE 1.926 uIU/mL (0.358-3.74)
[2018-11-24] MEDS: hydrALAZINE HCL 25 MG TABLET PO SCH ×3 (05:46→21:06)
--- NOTE | 2018-11-24 06:21 | NUR ---
RN CLOSING NOTES PATIENT IS RESTING IN BED, COMFORTABLY. PATIENT SHOWS NO SIGNS OF RESPIRATORY DISTRESS. NO SIGNS OF SHORTNESS OF BREATH NOTED. PATIENT DID NOT COMPLAIN OF ANY FORM OF PAIN OR DISCOMFORT THE WHOLE SHIFT. IV SITE IS PATENT AND INTACT. LATEST BP WAS 137/72, PULSE 83. ALL NEEDS WERE ATTENDED TO. ALL SCHEDULED MEDICATION GIVEN. SAFETY PRECAUTIONS IMPLEMENTED. CALL LIGHT WITHIN REACH. WILL CONTINUE TO MONITOR AND ENDORSE TO ONCOMING AM RN.
[2018-11-24] MEDS: PANTOPRAZOLE 40 MG TABLET.DR PO SCH (07:30)
--- NOTE | 2018-11-24 07:48 | NUR ---
RN OPENING NOTES PT AWAKE AND RESTING IN BED. NO COMPLAINTS OF PAIN, SOB OR DISTRESS AT THIS TIME. PT NPO AT THIS TIME, AWAITING CONSULT WITH DR MANCUSO FOR HD CATH MALFUNCTION. SAFETY PRECAUTIONS IN PLACE, BED IN LOWEST LOCKED POSITION, X2 SIDE RAILS UP AND CALL LIGHT WITHIN REACH. WILL CONTINUE TO MONITOR.
[2018-11-24 08:00] VITALS: BP 143/84
--- NOTE | 2018-11-24 09:37 | NUR ---
RN NOTES PAGED DR MANCUSO PER HD CATHETER MALFUNCTION. WILL CONTINUE TO FOLLOW UP.
--- NOTE | 2018-11-24 09:48 | NUR ---
Social service consult requested by Dr. Foster for possible homelessness. Pt. is a 58 year old male who was admitted to [facility] for HD Catheter malfunction. SW is familiar with pt. from previous admission. SW met with pt. bedside. Pt. is alert and oriented x 4. Pt. is a and [facility]. Pt. is on dialysis and attend his dialysis at [facility] in [place]. Pt. appears well-groomed and cooperative with SW during the assessment. Pt. states he is now residing at [facility] located at [address] [place] [address], in [facility]. Pt's biologist at [facility] is [place] Je. Pt. received housing through the [facility]. Pt. stated, Mr. Elizondo from the [facility] assisted him with housing. Pt. denies any alcohol and drug use. Pt. smokes approximately 1-2 cigarettes per day. Pt. denies any suicidal and homicidal and visual/auditory hallucinations at this time. Pt. will be discharged back to [facility] once medically cleared. Pt. would like a TAP card to get back to [facility]. Homeless patient Waiver Form to be signed by the pt. upon discharge.
--- NOTE | 2018-11-24 10:08 | NUR ---
RN NOTES PER DR MANCUSO, WILL REPLACE HD CATHETER TODAY. INFORMED DR SCOTT OF POTASSIUM LEVEL OF 6.1. WILL HAVE DIALYSIS TODAY AFTER NEW HD CATHETER.
[2018-11-24] MEDS: NIFEdipine XL 60 MG TAB PO SCH (10:30)
[2018-11-24] MEDS ORDERED: INSULIN REGULAR, HUMAN 100 UNIT/ML 10 ML VIAL IV ONE (10:30)
[2018-11-24] MEDS ORDERED: FUROSEMIDE 100 MG/10 ML VIAL IV ONE (10:30)
[2018-11-24] MEDS ORDERED: DEXTROSE 50%-WATER 50 ML DISP.SYRIN IVP ONE (10:30)
[2018-11-24] MEDS: LACTOBACILLUS RHAMNOSUS GG 1 EACH CAP.SPRINK PO SCH ×2 (10:30→19:08)
[2018-11-24] MEDS ORDERED: SODIUM POLYSTYRENE SULFONATE 15 G/60 ML BOTTLE PO ONE (10:30)
[2018-11-24] MEDS: SEVELAMER CARBONATE 800 MG TABLET PO SCH ×3 (10:30→19:08)
--- NOTE | 2018-11-24 10:32 | NUR ---
RN NOTES PT TAKEN DOWN TO OR FOR HD REPLACEMENT. WILL AWAIT RETURN. ALL CONSENTS SIGNED.
[2018-11-24] MEDS ORDERED: LIDOCAINE HCL/PF 1% 30 ML SDV ONE (10:42)
[2018-11-24] MEDS ORDERED: FENTANYL PF 100MCG/2ML AMPUL ONE (10:57)
[2018-11-24] MEDS ORDERED: HEPARIN SODIUM, PORCINE 1,000 UNIT/ML VIAL ONE (10:58)
--- NOTE | 2018-11-24 11:17 | NUR ---
RN NOTES BLOOD SUGAR 84. PER MD ORDER ONE TIME DOSE OF DEXTROSE, AND IV INSULIN GIVEN.
[2018-11-24] MEDS ORDERED: CEFAZOLIN 2 GM ONE (11:22)
[2018-11-24 12:15] VITALS: BP 148/93
--- NOTE | 2018-11-24 12:17 | NUR ---
RN NOTES PT ARRIVED BACK ONTO THE UNIT. VITAL SIGNS STABLE. WILL CONTINUE TO MONITOR.
[2018-11-24 12:45] VITALS: BP_SYST 144; BP_SYST 148; BP_DIAS 82; BP_DIAS 93
--- NOTE | 2018-11-24 12:57 | NUR ---
RN NOTES PER DR KNOX, HOLD LASIX AND KAYEXALATE, PT WILL BE DIALYZED TODAY.
[2018-11-24 13:15] VITALS: BP 140/78
[2018-11-24 13:57] LABS: CALCIUM, SERUM 8.5 mg/dL (8.5-10.1); POTASSIUM 5.2 mmol/L (3.5-5.1)
--- NOTE | 2018-11-24 14:02 | NUR ---
RN NOTES HELD HYDRALAZINE, PT SCHEDULED FOR DIALYSIS THIS AFTERNOON.
[2018-11-24 14:13] LABS: CREATININE 8.7 mg/dL (0.6-1.3)
[2018-11-24 15:59] VITALS: BP 147/89
--- NOTE | 2018-11-24 19:01 | NUR ---
RN CLOSING NOTES PT AWAKE AND RESTING IN BED. NO COMPLAINTS OF PAIN, SOB OR DISTRESS AT THIS TIME. PORTACATH REPLACED TODAY. HD TODAY. PT HAS A LEFT AC #18 INTACT AND PATENT. MEDICATIONS HELD UNTIL HD COMPLETE. SAFETY PRECAUTIONS IN PLACE, BED IN LOWEST LOCKED POSITION, X2 SIDE RAILS UP AND CALL LIGHT WITHIN REACH. WILL ENDORSE TO HAND BRAILLE TRANSCRIBER NURSE FOR CONTINUITY OF CARE.
--- NOTE | 2018-11-24 19:15 | NUR ---
MS JEAN INITIAL NOTES RECEIVED REPORT FROM AM NURSE WHILE CHECKING THE PATIENT , HE'S AWAKE AND ALERT WATCHING TV AT THIS TIME WITH NO SIGNS OF ANY DISTRESS NOTED. DIALYSIS HAD JUST DONE A WHILE AGO AND PATIENT COMPLAINING OF PAIN ON HIS PERMA CATH SITE. PAIN 6/10 , DRESSING DRY AND INTACT. NO N/VOTED. HEPLOCK PATENT AND INTACT. KEPT HIM WARM AND COMFORTABLE AT ALL TIMES. PLACE CALL LIGHT AT REACH.
--- NOTE | 2018-11-24 19:27 | NUR ---
MS ROOF TRUSS BUILDER NOTES PAIN MGT. C/O PAIN ON HIS PERMA CATH SITE , NORCO TABLET GIVEN ORDERED. SNACKS ALSO OFFERED AND PATIENT STATED "THANK YOU ". WILL CONTINUE MONITORING. PLACE CALL LIGHT AT REACH.
[2018-11-24 20:00] VITALS: BP 164/94
--- NOTE | 2018-11-25 | NUR ---
MS JEAN NOTES PT SLEEPING COMFORTABLY IN BED WITHOUT ANY DISTRESS OR ANY DISCOMFORT NOTED. KEPT HIM WARM AND COMFORTABLE AT ALL TIMES. PLACE CALL LIGHT AT REACH. WILL CONTINUE MONITORING.
[2018-11-25] MEDS: hydrALAZINE HCL 25 MG TABLET PO SCH ×2 (06:22→13:00)
[2018-11-25] MEDS: PANTOPRAZOLE 40 MG TABLET.DR PO SCH (06:24)
--- NOTE | 2018-11-25 07:00 | NUR ---
MS CHARGE MASTER COORDINATOR CLOSING NOTES PT AWAKE AND ALERT WATCHING TV AT THIS TIME. NOT IN ANY DISCOMFORT. SLEPT WELL AND STABLE CHRISTINE THE NIGHT AFTER PAIN MEDICATION GIVEN. BLOOD PRESSURE WITHIN NORMAL LIMIT AFTER HYDRALAZINE GIVEN LAST NIGHT. KEPT HIM WARM AND COMFORTABLE AT ALL TIMES. ENDORSE TO AM NURSE FOR CONTINUITY OF CARE.
--- NOTE | 2018-11-25 07:20 | NUR ---
RN CLOSING NOTES PT AWAKE AND RESTING IN BED. NO COMPLAINTS OF PAIN, SOB OR DISTRESS AT THIS TIME. PERMACATH REPLACED 11/24/18. PT HAS A LEFT AC #18 INTACT AND PATENT. SAFETY PRECAUTIONS IN PLACE, BED IN LOWEST LOCKED POSITION, X2 SIDE RAILS UP AND CALL LIGHT WITHIN REACH. WILL CONTINUE TO MONITOR.
[2018-11-25 07:21] LABS: BASOPHILS % (AUTO) 0.8 % (0.0-2.0); EOSINOPHILS % (AUTO) 5.4 % (0.0-6.0); HEMATOCRIT 44 % (39-51); HEMOGLOBIN 14.4 g/dL (13.5-17.5); LYMPHOCYTES # (AUTO) 1.5 /CMM (0.8-4.8); LYMPHOCYTES % (AUTO) 26.5 % (20.0-44.0); MEAN CORPUSCULAR HGB CONC 33 g/dl (31.0-36.0); MEAN CORPUSCULAR VOLUME 89 fL (80-96); MONOCYTES # (AUTO) 0.5 /CMM (0.1-1.30); MONOCYTES % (AUTO) 9.3 % (2.0-12.0); NEUTROPHILS # (AUTO) 3.3 /CMM (1.8-8.9); PLATELET COUNT (AUTO) 208 /CMM (150-450); RED BLOOD CELL COUNT(AUTO) 4.94 MIL/uL (4.5-6.0); WHITE BLOOD COUNT (AUTO) 5.6 K/uL (4.3-11.0)
[2018-11-25 07:31] LABS: CALCIUM, SERUM 8.4 mg/dL (8.5-10.1); CREATININE 8.1 mg/dL (0.6-1.3); POTASSIUM 5.7 mmol/L (3.5-5.1)
[2018-11-25 08:00] VITALS: BP 156/82
[2018-11-25 08:24] VITALS: BP 156/82
[2018-11-25] MEDS: LACTOBACILLUS RHAMNOSUS GG 1 EACH CAP.SPRINK PO SCH (08:24)
[2018-11-25] MEDS: NIFEdipine XL 60 MG TAB PO SCH (08:24)
[2018-11-25] MEDS: SEVELAMER CARBONATE 800 MG TABLET PO SCH ×2 (08:24→13:00)
[2018-11-25] MEDS ORDERED: NIFE60TA69 PO (09:06)
--- NOTE | 2018-11-25 15:15 | NUR ---
SALESPERSON TRAILERS AND MOTOR HOMES NOTES PT STABLE AT DISCHARGE. PT WILL BE RETURNING TO [facility] UPON DISCHARGE. IV AND ID BAND REMOVED PRIOR TO DISCHARGE. ALL DISCHARGE PAPERWORK, EXPLAINED, SIGNED, COPIED AND GIVEN TO THE PATIENT. TAP CARD GIVEN TO PATIENT. PT REFUSED DISCHARGE PICTURES. PT AMBULATED OFF OF THE UNIT AT 1515 ACCOMPANIED BY RN.
== END 2018-11-25 15:10 | disposition home or self-care (01) | DRG 466 ==
LOC: ER 14:06 → MED 17:17
PROVIDERS: ADMIT Nurse Practitioner Acute Care; ATTEND Nurse Practitioner Acute Care
PROC: 5A1D70Z Performance of Urinary Filtration, Intermittent, Less than 6 Hours Per Day (ICD-10-PCS; principal; 2018-11-24)
PROC: 05PY33Z Removal of Infusion Device from Upper Vein, Percutaneous Approach (ICD-10-PCS; principal; 2018-11-24)
PROC: 0JH63XZ Insertion of Tunneled Vascular Access Device into Chest Subcutaneous Tissue and Fascia, Percutaneous Approach (ICD-10-PCS; principal; 2018-11-24)
PROC: B518YZA Fluoroscopy of Superior Vena Cava using Other Contrast, Guidance (ICD-10-PCS; principal; 2018-11-24)
PROC: 02HV33Z Insertion of Infusion Device into Superior Vena Cava, Percutaneous Approach (ICD-10-PCS; principal; 2018-11-24)
PROC: 5A1D70Z Performance of Urinary Filtration, Intermittent, Less than 6 Hours Per Day (ICD-10-PCS; 2018-11-25)
DX: T82.41XA Breakdown (mechanical) of vascular dialysis catheter, initial encounter (principal); I12.0 Hypertensive chronic kidney disease with stage 5 chronic kidney disease or end stage renal disease; E87.5 Hyperkalemia; Y84.8 Other medical procedures as the cause of abnormal reaction of the patient, or of later complication, without mention of misadventure at the time of the procedure; N18.6 End stage renal disease; B19.20 Unspecified viral hepatitis C without hepatic coma; F17.210 Nicotine dependence, cigarettes, uncomplicated; Z59.0 Homelessness; M47.896 Other spondylosis, lumbar region; M17.11 Unilateral primary osteoarthritis, right knee; Z99.2 Dependence on renal dialysis; Z87.440 Personal history of urinary (tract) infections; Y71.2 Prosthetic and other implants, materials and accessory cardiovascular devices associated with adverse incidents; Y92.009 Unspecified place in unspecified non-institutional (private) residence as the place of occurrence of the external cause
CPT/HCPCS: 36415; 71045-TC; 80048-TC; 80053-TC; 80061-TC; 82962-TC; 83735-TC; 84100-TC; 84443-TC; 84484-TC; 85025-TC; 85652-TC; 87081-TC; 90935-TC; A6402; C1750; C1769; G0378; J0690; J1644; J1815; J1940; J3010; J3490

== ENCOUNTER 2018-11-27 15:30 | Emergency (ER) | payer MEDICAID, OTHER ==
[~2018-11-27] VITALS: Ht 180.3 cm; Wt 77.1 kg
[~2018-11-27 15:30] MED LIST changes: +NIFE60TA69 PO; +SEVE800T8 PO
--- NOTE | 2018-11-27 15:41 | NUR ---
Sent by HD center to evaluate high blood pressure after HD today;1 liter UF 215/100; new HD patient for about 2 months now. NO ACUTE DISTRESS NOTED. NO OTHER COMPLAINTS AT THIS TIME. READY FOR EVAL.
--- NOTE | 2018-11-27 15:59 | NUR ---
Patient discharged to home in stable condition. Written and verbal after care instructions given. Patient verbalizes understanding of instruction.
[2018-11-27 17:29] VITALS: BP 163/114
== END 2018-11-27 15:59 | disposition home or self-care (01) ==
LOC: ER 15:32
DX: I12.0 Hypertensive chronic kidney disease with stage 5 chronic kidney disease or end stage renal disease (principal); N18.6 End stage renal disease; Z99.2 Dependence on renal dialysis; Z98.890 Other specified postprocedural states; Z79.899 Other long term (current) drug therapy

== ENCOUNTER 2019-08-08 15:19 | Inpatient (IN) | payer MEDICAID, OTHER ==
[~2019-08-08] VITALS: Ht 180.3 cm; Wt 77.6 kg
[~2019-08-08 15:19] MED LIST changes: +NIFE-34 PO; -NIFE60TA69 PO
--- NOTE | 2019-08-08 17:08 | NUR ---
PT AAOX4. AMBULATORY. C/O perm cath malfunction, last HD .
[2019-08-08] MEDS ORDERED: NIFE-34 PO (17:47)
--- NOTE | 2019-08-08 18:10 | NUR ---
LABS COLLECTED AND LINE INSERTED
[2019-08-08 18:12] LABS: BASOPHILS # (AUTO) 0.1 /CMM (0.0-0.2); BASOPHILS % (AUTO) 0.9 % (0.0-2.0); EOSINOPHILS % (AUTO) 1.6 % (0.0-6.0); HEMATOCRIT 39 % (39-51); HEMOGLOBIN 12.5 g/dL (13.5-17.5); LYMPHOCYTES # (AUTO) 1.5 /CMM (0.8-4.8); LYMPHOCYTES % (AUTO) 10.6 % (20.0-44.0); MEAN CORPUSCULAR HGB CONC 32 g/dl (31.0-36.0); MEAN CORPUSCULAR VOLUME 88 fL (80-96); MONOCYTES # (AUTO) 0.8 /CMM (0.1-1.30); MONOCYTES % (AUTO) 5.8 % (2.0-12.0); NEUTROPHILS # (AUTO) 11.1 /CMM (1.8-8.9); NEUTROPHILS % (AUTO) 81.1 % (43.0-81.0); PLATELET COUNT (AUTO) 315 /CMM (150-450); RED BLOOD CELL COUNT(AUTO) 4.45 MIL/uL (4.5-6.0); WHITE BLOOD COUNT (AUTO) 13.7 K/uL (4.3-11.0)
--- NOTE | 2019-08-08 18:50 | NUR ---
CALLED NURSING SUP FOR TELE BED.
[2019-08-08 18:56] LABS: CREATININE 11.1 mg/dL (0.6-1.3); POTASSIUM 8.1 mmol/L (3.5-5.1)
--- NOTE | 2019-08-08 19:07 | NUR ---
ORDERED A REDRAW FOR K+
[2019-08-08] MEDS: SODIUM POLYSTYRENE SULFONATE 15 G/60 ML BOTTLE PO ONE ×2 (19:45→21:30)
--- NOTE | 2019-08-08 19:58 | NUR ---
ROOM GIVEN 320-1
[2019-08-08] MEDS ORDERED: MAG HYDROX/AL HYDROX/SIMETH 30 ML UDC PO PRN (20:00)
[2019-08-08] MEDS ORDERED: MAGNESIUM HYDROXIDE 30 ML UDC PO PRN (20:00)
[2019-08-08] MEDS ORDERED: ONDANSETRON HCL/PF 4 MG/2 ML VIAL IVP PRN (20:00)
[2019-08-08] MEDS ORDERED: DEXTROSE 50%-WATER 50 ML DISP.SYRIN IVP ONE ×2 (20:00→20:30)
[2019-08-08] MEDS ORDERED: Z GUARD REMEDY 2 OZ OINT TP PRN (20:00)
[2019-08-08] MEDS ORDERED: INSULIN REGULAR, HUMAN 100 UNIT/ML 10 ML VIAL IV ONE (20:00)
[2019-08-08] MEDS ORDERED: ALBUTEROL FS 2.5 MG/0.5 ML VIAL.NEB NEB ONE (20:00)
[2019-08-08] MEDS ORDERED: ACETAMINOPHEN 325 MG TABLET PO PRN (20:00)
[2019-08-08] MEDS ORDERED: INSULIN REGULAR, HUMAN 100 UNIT/ML 10 ML VIAL ONE (20:01)
[2019-08-08] MEDS ORDERED: DEXTROSE 50%-WATER 50 ML DISP.SYRIN ONE ×2 (20:01→20:06)
[2019-08-08] MEDS ORDERED: SODIUM POLYSTYRENE SULFONATE 15 G/60 ML BOTTLE ONE (20:01)
[2019-08-08] MEDS ORDERED: ALBUTEROL FS 2.5 MG/3 ML VIAL.NEB ONE (20:52)
--- NOTE | 2019-08-08 20:54 | NUR ---
REPORT GIVEN TO ISATU CARSON
--- NOTE | 2019-08-08 22:48 | NUR ---
ROOM 112
--- NOTE | 2019-08-08 22:48 | NUR ---
CALLED TO GIVE REPORT, CALL BACK AGAIN AFTER 5 MINS PER INTERNATIONAL MARKETING COORDINATOR
--- NOTE | 2019-08-08 22:53 | NUR ---
NURSE WILL CALL BACK
--- NOTE | 2019-08-08 23:27 | NUR ---
CALLED TO GIVE REPORT NO ONE IS ANSWERING
--- NOTE | 2019-08-08 23:30 | NUR ---
RECEIVED REPORT FROM ALLI WOODRUFF FOR GENESIS.
--- NOTE | 2019-08-08 23:33 | NUR ---
REPORT GIVEN TO KYE CARSON
[2019-08-09 00:15] VITALS: BP 157/70
--- NOTE | 2019-08-09 00:15 | NUR ---
CHRIS RN OPENING/ADMITTING NOTES RECEIVED PATIENT VIA GURNEY FROM ER. DX HYPERKALEMIA. PER ATHLETIC SCOUT, PATIENT RECEIVED KAYEXALATE IN ER AND JUST HAD BOWEL MOVEMENT PRIOR TO TRANSFER. PATIENT AWAKE, A/OX4. C/O ACHING CHRONIC BACK PAIN 10/20. ON TELE MONITOR SR WITH HR 80'S. ON ROOM AIR, TOLERATING WELL, NO SOB OR RESPIRATORY DISTRESS NOTED, SATURATING 100% AT THE MOMENT. VITAL SIGNS WNL (CHECK FLOWSHEET). SKIN INTACT. RIGHT CHEST WALL HD CATH NOTED, DRESSING PLACED ON SITE. IV SITE LEFT AC 20G, FLUSHING AND PATENT, CLAMPED, SITE C/D/I. PATIENT ORIENTED TO UNIT/ROOM. SAFETY MEASURES IN PLACE; CALL LIGHT WITHIN REACH, BED IS IN LOWEST AND LOCKED POSITION, SIDE RAILS UP X2, HOB ELEVATED. PT WISHES TO BE FULL CODE. WILL ATTEND TO MD ADMITTING ORDERS. WILL CONTINUE TO MONITOR PT CLOSELY.
[2019-08-09 04:00] VITALS: BP_SYST 144; BP_DIAS 74; BP_DIAS 79
[2019-08-09 06:48] LABS: BASOPHILS # (AUTO) 0.1 /CMM (0.0-0.2); BASOPHILS % (AUTO) 0.7 % (0.0-2.0); EOSINOPHILS % (AUTO) 1.3 % (0.0-6.0); HEMATOCRIT 38 % (39-51); HEMOGLOBIN 11.8 g/dL (13.5-17.5); LYMPHOCYTES # (AUTO) 1.5 /CMM (0.8-4.8); LYMPHOCYTES % (AUTO) 12.8 % (20.0-44.0); MEAN CORPUSCULAR HGB CONC 31 g/dl (31.0-36.0); MEAN CORPUSCULAR VOLUME 87 fL (80-96); MONOCYTES # (AUTO) 0.7 /CMM (0.1-1.30); MONOCYTES % (AUTO) 6.3 % (2.0-12.0); NEUTROPHILS # (AUTO) 9.4 /CMM (1.8-8.9); NEUTROPHILS % (AUTO) 78.9 % (43.0-81.0); PLATELET COUNT (AUTO) 314 /CMM (150-450); RED BLOOD CELL COUNT(AUTO) 4.34 MIL/uL (4.5-6.0); WHITE BLOOD COUNT (AUTO) 11.9 K/uL (4.3-11.0)
[2019-08-09 07:06] LABS: CALCIUM, SERUM 8.3 mg/dL (8.5-10.1)
[2019-08-09 07:08] LABS: CREATININE 11.8 mg/dL (0.6-1.3)
[2019-08-09 07:14] LABS: PHOSPHORUS 11.8 mg/dL (2.5-4.9)
--- NOTE | 2019-08-09 07:15 | NUR ---
CHRIS RN CLOSING NOTES PATIENT SLEEPING IN BED, BUT EASY TO AROUSE VIA TOUCH. ON TELE MONITOR SR WITH HR 80'S. ON ROOM AIR, TOLERATING WELL, NO SOB OR RESPIRATORY DISTRESS NOTED. RIGHT CHEST WALL HD CATH INTACT, IV SITE LEFT AC 20G, FLUSHING AND PATENT, S/L, SITE C/D/I. SAFETY MEASURES IN PLACE; CALL LIGHT WITHIN REACH, BED IS IN LOWEST AND LOCKED POSITION, SIDE RAILS UP X2, HOB ELEVATED. DIVER'S TENDER CONS PENDING. ENDORSED TO AM RN FOR GENESIS.
[2019-08-09 08:00] VITALS: BP 160/71
--- NOTE | 2019-08-09 08:00 | NUR ---
CHRIS RN NOTE RECIEVED PATIENT IN BED. ALERT AWAKE X 4. RAC 20 G INTACT AND FLUSHED WELL. R CW HD CATH IN PLACE. K 7.0, AIRBORNE AND AIR DELIVERY SPECIALIST MD PERES AWARE, STATED WILL SEE PATIENT SOON. BED LOCKED AND IN LOWEST POSITION. CALL LIGHT IN REACH. NO SOB NOTED OR PAIN AT THIS TIME. WILL CONTINUE TO MONITOR PATIENT.
[2019-08-09] MEDS: NIFEdipine XL 60 MG TAB PO SCH (08:32)
--- NOTE | 2019-08-09 08:36 | NUR ---
PROCARDIA MEDICATION NOT GIVEN PT RECEIVING DIALYSIS AT THIS TIME
[2019-08-09] MEDS ORDERED: SEVELAMER CARBONATE 800 MG TABLET PO SCH (09:00)
[2019-08-09] MEDS ORDERED: ALTEPLASE CATHFLO 2 MG/VIAL IV ONE (10:30)
--- NOTE | 2019-08-09 10:44 | NUR ---
CHRIS RN NOTE RECEIVED ORDERS FROM DR MANCUSO TO OBTAIN CONSENT FOR PROCEDURE FOR TOMORROW, BNP IN AM, NPO AFTER MIDNIGHT. WILL F/U
--- NOTE | 2019-08-09 11:00 | NUR ---
supervisor telephone answering service note hd complected ,removed 2l out of fluids, bp155/78
[2019-08-09 12:00] VITALS: BP_SYST 156; BP_SYST 160; BP_DIAS 71; BP_DIAS 82
[2019-08-09] MEDS: SEVELAMER CARBONATE 800 MG TABLET PO SCH ×2 (12:07→18:01)
--- NOTE | 2019-08-09 13:36 | NUR ---
Social service consult requested by Dr. Foster for homelessness. Per chart review and MD notes, Pt. is a 59-year-old male who was admitted to [facility] for hyperkalemia and chest pain. SW is familiar with pt. from previous admission. SW met with pt. bedside. Pt. is alert and oriented x 4. Pt. [facility] Pt. is on dialysis and attend his dialysis at [facility] in [place] on , and Thursday at 12:30PM. Pt has transportation to and from his dialysis center. Pt. appears well-groomed and cooperative with SW during the assessment. Pt. states he continues reside at [facility] located at [address] [place] [address], in [facility]. 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 Pt. reported he is going to get an apartment soon through [facility]. Pt. denies any current alcohol and drug use. Pt. smokes approximately 1-2 cigarettes per day. Pt. denies any suicidal and homicidal and visual/auditory hallucinations at this time. [facility] provided active listening and supportive counseling to the pt. Pt. will be discharged back to [facility] once medically cleared. Pt. would like a TAP card to get back to [facility] at time of discharge. Pt to sign Homeless Patient Waiver from upon discharge. client solutions manager Natasha and CHRIS Mcgowan have been updated with pt's discharge plan.
--- NOTE | 2019-08-09 15:11 | NUR ---
METAL CANS SUPERVISOR NOTE ALL NEEDS ATTENDED ,WILL CONT TO MONITOR
--- NOTE | 2019-08-09 15:44 | NUR ---
AD OPERATIONS COORDINATOR NOTE CALLED TO US DEPARTMENT TO DO VAIN MAPPING STATED THAT WILL BE DONE TODAY
[2019-08-09 16:00] VITALS: BP 143/69
--- NOTE | 2019-08-09 18:16 | NUR ---
SHEET HEATER NOTE VEIN MAPPING DOING NOW
--- NOTE | 2019-08-09 18:28 | NUR ---
TRANSPORTATION DIRECTOR NOTE PT IN BED ATE 100% OF DINNER, ABLE TO FEED SELF. AMBULATING TO THE RESTROOM. WILL BE NPO AFTER MIDNIGHT PER MD ORDERS. SAFETY MEASURES OBSERVED. CALL WITHIN REACH. WILL CONTINUE TO MONITOR.
--- NOTE | 2019-08-09 18:47 | NUR ---
GRADUATE STUDENT NOTES DR. MANCUSO NOTIFIED ABOUT VEIN MAPPING RESULTS. SUPERFICIAL THROMBUS TO LEFT CEPHALIC VEIN. NO NEW ORDER AT THIS TIME.
--- NOTE | 2019-08-09 19:15 | NUR ---
RN OPEN NOTES RECEIVED PATIENT SITTING IN CHAIR. A/OX4. NO SIGNS OF DISTRESS OR DISCOMFORT. BREATHING EVEN AND UNLABORED. ON TELE MONITOR WITH SR 84 NOTED. IV ACCESS IN LAC, PATENT AND INTACT, NO SIGNS OF REDNESS OR INFILTRATION. BED IN LOW LOCKED POSITION WITH SIDE RAILS X2. CALL LIGHT WITHIN REACH. WILL CONTINUE TO MONITOR. Addendum: 08/09/19 at 2208 by QUYEN JUAREZ RN PT HAS RCW HD CATH INTACT, DRESSING C/D/I.
[2019-08-09 20:00] VITALS: BP 168/73
[2019-08-09] MEDS: HYDROCODONE/APAP 5/325MG 1 EACH TABLET PO PRN (20:21)
[2019-08-10] VITALS: BP 152/75
[2019-08-10 04:00] VITALS: BP 150/70
[2019-08-10 06:40] LABS: CALCIUM, SERUM 8.6 mg/dL (8.5-10.1)
[2019-08-10 06:44] LABS: POTASSIUM 6.4 mmol/L (3.5-5.1)
[2019-08-10 06:45] LABS: CREATININE 10.8 mg/dL (0.6-1.3)
--- NOTE | 2019-08-10 07:30 | NUR ---
RN OPENING NOTES RECEIVED PATIENT FROM JOB COST ESTIMATOR NURSE, AWAKE IN BED, A/O X4. NO SIGNS OF ACUTE DISTRESS NOTED. HD SCHEDULED FOR TODAY, POTASSIUM LEVELS ARE ELEVATED, DR IS AWARE. BREATHING EVEN AND UNLABORED, ON ROOM AIR SATURATING WELL. IV IN LEFT AC INTACT, PATENT AND FLUSHED WELL. NO SIGNS AND SYMPTOM OF INFECTION NOTED. HD CATHETER REPLACEMENT SCHEDULED FOR TODAY, PATIENT IS KEPT NPO SINCE MIDNIGHT. SAFETY MAINTAINED, CALL LIGHT WITHIN REACH, WILL CONTINUE TO MONITOR.
--- NOTE | 2019-08-10 07:42 | NUR ---
RN CLOSING NOTES PATIENT AWAKE IN BED. A/OX4. NO SIGNS OF DISTRESS OR DISCOMFORT. BREATHING EVEN AND UNLABORED. ON TELE MONITOR WITH SR 80 NOTED. IV ACCESS IN LAC, PATENT AND INTACT, NO SIGNS OF REDNESS OR INFILTRATION. HAS HD CAT INTACT. ALL NEEDS MET. NO SIGNIFICANT CHANGES THROUGH THE NIGHT. BED IN LOW LOCKED POSITION WITH SIDE RAILS X2. CALL LIGHT WITHIN REACH. ENDORSED TO AM SHIFT FOR GENESIS. Addendum: 08/10/19 at 0759 by QUYEN JUAREZ RN 0700 RECEIVED CRITICAL LAB VALUE OF K 6.4, CALLED EPIC TO REPORT VALUE TO MD AND WAS UNABLE TO GET THROUGH TO PATIENT ASSIGNED MD. ENDORSED TO AM SHIFT TO NOTIFY MD.
[2019-08-10 08:00] VITALS: BP 137/68
[2019-08-10] MEDS: SEVELAMER CARBONATE 800 MG TABLET PO SCH ×3 (08:00→18:17)
[2019-08-10] MEDS: NIFEdipine XL 60 MG TAB PO SCH (08:45)
[2019-08-10 12:00] VITALS: BP 151/62
--- NOTE | 2019-08-10 12:00 | NUR ---
RN NOTES IV REMOVED FROM LEFT AC PER MD ORDER. PLACED A NEW IV ON RIGHT HAND, GAUGE #22. IV IS PATENT, INTACT, AND FLUSHED WELL. NO COMPLAINS OF PAIN FROM PATIENT.
[2019-08-10] MEDS: HYDROCODONE/APAP 5/325MG 1 EACH TABLET PO PRN (13:23)
[2019-08-10 16:00] VITALS: BP_SYST 145; BP_SYST 165; BP_DIAS 66; BP_DIAS 86
--- NOTE | 2019-08-10 19:25 | NUR ---
RN Notes Received patient awake, alert and oriented x4. on room air and tolerated well. HD cath on left chest wall intact with dressing clean and dry. IV access on right wrist patent and intact. Denies any pain and discomfort at this time. Plan of care discussed with the patient and verbalized understanding. Kept comfortable and attended. will continue to monitor.
--- NOTE | 2019-08-10 19:32 | NUR ---
RN CLOSING NOTES ENDORSED PATIENT TO STATE HIGHWAY POLICE OFFICER NURSE TO CONTINUE CARE. ALL PATIENT NEEDS MET. NO ACUTE CHANGES TO PATIENT CONDITION DURING MY SHIFT. HD CATHETER REPLACEMENT WAS POSTPONED UNTIL THURSDAY, PATIENT IS NO LONGER NPO. ENDORSED TO ELISABETH Addendum: 08/10/19 at 1936 by JONY WHITTINGTON RN ENDORSED TO STATE HIGHW[address] POLICE OFFICER NURSE TO KEEP PATIENT NPO AFTER MIDNIGHT ON THURSDAY. ALSO ENDORSED TO COLLECT STOOL FOR OB WHEN PATIENT GOES TO THE RESTROOM. NEW IV LINE ON RIGHT HAND REMAINS INTACT, PATENT AND FLUSHED WELL. CALL LIGHT WITHIN REACH. SAFETY MAINTAINED. STATE HIGHWAY POLICE OFFICER NURSE WILL CONTINUE CARE. .
[2019-08-10 20:00] VITALS: BP 156/70
[2019-08-11] VITALS: BP 162/67
--- NOTE | 2019-08-11 07:01 | NUR ---
RN Notes Patient stable overnight, vital signs stable, afebrile. Denies any pain and discomfort. No significant change in condition noted. Will endorse accordingly.
[2019-08-11 08:00] VITALS: BP 142/74
--- NOTE | 2019-08-11 08:10 | NUR ---
RN NOTE; PATIENT RECEIVED ALERT AWAKE ORIENTED X 4. ON ROOM AIR, NO BREATHING DISTRESS NOTED. DENIES CHEST PAIN & DISCOMFORT. SAFETY MEASURES OBSERVED. PLAN FOR HD TODAY. ENCOURAGE PATEIN TO USE CALL LIGHT FOR ASSISTANCE. CONTINUE WITH PLAN OF CARE.
[2019-08-11 08:19] LABS: BASOPHILS # (AUTO) 0.1 /CMM (0.0-0.2); EOSINOPHILS % (AUTO) 2.4 % (0.0-6.0); HEMATOCRIT 38 % (39-51); HEMOGLOBIN 12.2 g/dL (13.5-17.5); LYMPHOCYTES # (AUTO) 1.4 /CMM (0.8-4.8); LYMPHOCYTES % (AUTO) 14.7 % (20.0-44.0); MEAN CORPUSCULAR HGB CONC 32 g/dl (31.0-36.0); MEAN CORPUSCULAR VOLUME 87 fL (80-96); MONOCYTES % (AUTO) 9.9 % (2.0-12.0); PLATELET COUNT (AUTO) 235 /CMM (150-450); RED BLOOD CELL COUNT(AUTO) 4.36 MIL/uL (4.5-6.0); WHITE BLOOD COUNT (AUTO) 9.7 K/uL (4.3-11.0)
[2019-08-11 08:26] LABS: CALCIUM, SERUM 8.4 mg/dL (8.5-10.1); POTASSIUM 5.5 mmol/L (3.5-5.1)
[2019-08-11] MEDS: SEVELAMER CARBONATE 800 MG TABLET PO SCH ×3 (08:34→18:07)
[2019-08-11] MEDS: NIFEdipine XL 60 MG TAB PO SCH (08:35)
[2019-08-11 09:04] LABS: CREATININE 10.4 mg/dL (0.6-1.3)
[2019-08-11 12:00] VITALS: BP 149/71
[2019-08-11 16:00] VITALS: BP 147/70
[2019-08-11] MEDS: HYDROCODONE/APAP 5/325MG 1 EACH TABLET PO PRN (18:11)
--- NOTE | 2019-08-11 18:28 | NUR ---
RN NOTE; NO SIGNIFICANT CHANGES NOTED DURING SHIFT. HD DONE TODAY, TOLERATED WELL WITH 2 L OUTPUT. SAFETY MEASURES OBSERVED. CONTINUE TO MONITOR.
[2019-08-11 20:00] VITALS: BP 135/69
--- NOTE | 2019-08-11 20:09 | NUR ---
TELE1/RN RECEIVE PATIENT IN BED AWAKE, ALERT, ORIENTED, COMFORTABLE, NO C/O PAIN, NO DISTRESS NOTED, PLAN OF CARE DISCUSSED, VERBALIZED UNDERSTANDING AND AGREEMENT TO THE POC, PLACED CALL LIGHT IN REACH. WILL MONITOR.
[2019-08-11 20:17] VITALS: BP 135/69
[2019-08-12] VITALS: BP 158/71
--- NOTE | 2019-08-12 02:20 | NUR ---
CHRIS/RN PATIENT IS SLEEPING AT THIS TIME, APPEAR COMFORTABLE, NO SIGNS OF DISTRESS NOTED, CALL LIGHT IN REACH. WILL CONTINUE TO MONITOR.
[2019-08-12 04:00] VITALS: BP 147/79
--- NOTE | 2019-08-12 06:15 | NUR ---
CHRIS/RN PATIENT IS STILL SLEEPING AT THIS TIME, APPEAR COMFORTABLE, NO SIGNS OF DISTRESS NOTED, CALL LIGHT IN REACH. WILL CONTINUE TO MONITOR.
[2019-08-12 06:35] LABS: BASOPHILS % (AUTO) 0.5 % (0.0-2.0); EOSINOPHILS % (AUTO) 2.2 % (0.0-6.0); HEMATOCRIT 41 % (39-51); HEMOGLOBIN 13.1 g/dL (13.5-17.5); LYMPHOCYTES # (AUTO) 1.1 /CMM (0.8-4.8); LYMPHOCYTES % (AUTO) 11.3 % (20.0-44.0); MEAN CORPUSCULAR HGB CONC 32 g/dl (31.0-36.0); MEAN CORPUSCULAR VOLUME 87 fL (80-96); MONOCYTES # (AUTO) 1.1 /CMM (0.1-1.30); MONOCYTES % (AUTO) 11.1 % (2.0-12.0); NEUTROPHILS # (AUTO) 7.2 /CMM (1.8-8.9); NEUTROPHILS % (AUTO) 74.9 % (43.0-81.0); PLATELET COUNT (AUTO) 177 /CMM (150-450); RED BLOOD CELL COUNT(AUTO) 4.71 MIL/uL (4.5-6.0); WHITE BLOOD COUNT (AUTO) 9.6 K/uL (4.3-11.0)
[2019-08-12 07:03] LABS: CALCIUM, SERUM 8.6 mg/dL (8.5-10.1); POTASSIUM 5.6 mmol/L (3.5-5.1)
[2019-08-12 08:00] VITALS: BP 161/65
[2019-08-12] MEDS: NIFEdipine XL 60 MG TAB PO SCH (08:58)
[2019-08-12] MEDS: SEVELAMER CARBONATE 800 MG TABLET PO SCH ×3 (08:58→18:00)
[2019-08-12 13:13] LABS: CALCIUM, SERUM 8.7 mg/dL (8.5-10.1); CREATININE 6.5 mg/dL (0.6-1.3); POTASSIUM 3.7 mmol/L (3.5-5.1)
[2019-08-12] MEDS ORDERED: ANESTHESIA TRAY IN PYXIS 1 EA TRAY MC ONE (15:52)
[2019-08-12] MEDS ORDERED: HEPARIN SODIUM, PORCINE 1,000 UNIT/ML VIAL ONE (15:53)
[2019-08-12] MEDS ORDERED: LIDOCAINE HCL/PF 1% 30 ML SDV ONE (15:53)
[2019-08-12] MEDS ORDERED: FENTANYL PF 100MCG/2ML AMPUL ONE ×2 (15:55→17:17)
[2019-08-12] MEDS ORDERED: SEVOFLURANE 250 ML BOTTLE IH ONE (16:56)
[2019-08-12] MEDS ORDERED: CELLULOSE,OXIDIZED 1 EACH EACH MC ONE (17:51)
--- NOTE | 2019-08-12 18:22 | NUR ---
alert, oriented, and appropriate, ate 100% breakfast, and made aware he is NPO for the av fistula placement in the afternoo,. Left the floor at 1530, so far havent heard from recovery yet. 1800 po meds not given
[2019-08-12] MEDS ORDERED: BUPIVACAINE 0.5 % PF 150 MG/30 ML VIAL ONE (18:35)
--- NOTE | 2019-08-12 19:35 | NUR ---
RN OPENING NOTE RECEIVED PATIENT FROM RECOVERY AT THIS TIME. A&O X3. BREATHING EVEN AND NON LABORED VIA ROOM AIR. ABLE TO MAKE NEEDS KNOWN. DRESSING ON RIGHT UPPER CHEST PERMA CATH CLEAN, INTACT, AND DRY. DRESSING ON LEFT UPPER ARM FISTULA CLEAN, INTACT, AND DRY. NO SIGNS OR SYMPTOMS OF BLEEDING NOTED AT THIS TIME. WILL CONTINUE TO MONITOR.
[2019-08-12] MEDS: HYDROCODONE/APAP 5/325MG 1 EACH TABLET PO PRN (20:00)
[2019-08-12 20:47] LABS: CALCIUM, SERUM 8.5 mg/dL (8.5-10.1)
[2019-08-12 20:54] LABS: CREATININE 8.3 mg/dL (0.6-1.3); POTASSIUM 6.6 mmol/L (3.5-5.1)
--- NOTE | 2019-08-12 20:56 | NUR ---
RN NOTES Juan Daniel TATE FROM LAB CALLED FOR RESULTS, PRIMARY RN MADE AWARE
[2019-08-12 21:00] VITALS: BP 161/74
--- NOTE | 2019-08-12 21:00 | NUR ---
RN NOTE RECEIVED CRITICAL LAB RESULTS. DR. GEORGE MADE AWARE AND GAVE NO NEW ORDERS.
[2019-08-12] MEDS: ANCEF 1 GM/50 ML D5W IV SCH ×2 (23:25)
[2019-08-13] VITALS (7 sets, daily range): BP systolic 130–154; BP diastolic 57–66
--- NOTE | 2019-08-13 06:47 | NUR ---
RN CLOSING NOTE PATIENT IS IN BED RESTING. BREATHING IS EVEN AND NON LABORED. NO SOB NOTED. ABLE TO MAKE NEEDS KNOWN. A&O X4. DUE MEDS GIVEN AND TOLERATED WELL WITH NO ADVERSE EFFECTS NOTED. AMBULATORY WITHOUT ANY ASSISTANCE. CALL LIGHT IS WITHIN REACH. PATIENT REFUSED 5 AM LABS THIS MORNING. PER LAB, THEY WILL TRY AGAIN WHEN PATIENT IS MORE AWAKE. WILL ENDORSE TO AM SHIFT RN FOR CONTINUATION OF CARE.
--- NOTE | 2019-08-13 07:22 | NUR ---
MS RN OPENING NOTE RECEIVED PATIENT IN BED SLEEPING COMFORTABLY. PATIENT IN NO ACUTE DISTRESS. NO SOB NOTED. PATIENT BREATHING IS EVEN AND UNLABORED. IV PATENT AND INTACT. DRESSING ON PERMACATH RIGHT UPPER CHEST DRY AND INTACT. DRESSING ON LEFT UPPER ARM FISTULA DRY AND INTACT. SAFETY PRECAUTIONS IN PLACE. PATIENT BED IS LOCKED AND IN LOWEST POSITION. CALL LIGHT WITHIN REACH. WILL CONTINUE TO MONITOR.
[2019-08-13] MEDS: ANCEF 1 GM/50 ML D5W IV SCH ×2 (07:46)
[2019-08-13] MEDS: SEVELAMER CARBONATE 800 MG TABLET PO SCH ×3 (07:47→17:02)
[2019-08-13] MEDS: HYDROCODONE/APAP 5/325MG 1 EACH TABLET PO PRN ×3 (07:48→22:13)
[2019-08-13] MEDS: NIFEdipine XL 60 MG TAB PO SCH (08:45)
[2019-08-13 09:40] LABS: BASOPHILS # (AUTO) 0.1 /CMM (0.0-0.2); BASOPHILS % (AUTO) 0.9 % (0.0-2.0); EOSINOPHILS % (AUTO) 0.4 % (0.0-6.0); HEMATOCRIT 35 % (39-51); HEMOGLOBIN 11.2 g/dL (13.5-17.5); LYMPHOCYTES % (AUTO) 12.3 % (20.0-44.0); MEAN CORPUSCULAR HGB CONC 32 g/dl (31.0-36.0); MEAN CORPUSCULAR VOLUME 87 fL (80-96); MONOCYTES # (AUTO) 0.5 /CMM (0.1-1.30); MONOCYTES % (AUTO) 6.6 % (2.0-12.0); NEUTROPHILS # (AUTO) 6.2 /CMM (1.8-8.9); NEUTROPHILS % (AUTO) 79.8 % (43.0-81.0); PLATELET COUNT (AUTO) 157 /CMM (150-450); RED BLOOD CELL COUNT(AUTO) 4.03 MIL/uL (4.5-6.0); WHITE BLOOD COUNT (AUTO) 7.8 K/uL (4.3-11.0)
[2019-08-13 10:39] LABS: CALCIUM, SERUM 8.2 mg/dL (8.5-10.1); PHOSPHORUS 7.5 mg/dL (2.5-4.9); POTASSIUM 4.9 mmol/L (3.5-5.1)
[2019-08-13 10:41] LABS: CREATININE 9.5 mg/dL (0.6-1.3)
--- NOTE | 2019-08-13 10:44 | NUR ---
MS RN NOTE NOTIFIED MICAH MERLIN ABOUT CRITICAL LAB VALUE BUN 83 AND CRE 9.5. MD MADE AWARE. NO NEW ORDERS AT THIS TIME. MD MADE AWARE OF POTASSIUM 4.9.
--- NOTE | 2019-08-13 18:22 | NUR ---
MS RN CLOSING NOTE PATIENT IN BED RESTING COMFORTABLY. PATIENT IN NO ACUTE DISTRESS. NO SOB NOTED. PATIENT BREATHING IS EVEN AND UNLABORED. IV PATENT AND INTACT. SAFETY PRECAUTIONS IN PLACE. PATIENT KEPT CLEAN, DRY AND COMFORTABLE THROUGHOUT SHIFT. NEEDS AND CONCERNS ADDRESSED. DRESSING ON PERMACATH RIGHT UPPER CHEST IS DRY AND INTACT. DRESSING ON LEFT UPPER ARM FISTULA IS DRY AND INTACT. PATIENT BED IS LOCKED AND IN LOWEST POSITION. CALL LIGHT WITHIN REACH. WILL ENDORSE CARE TO PM SHIFT FOR GENESIS.
--- NOTE | 2019-08-13 19:45 | NUR ---
MS RN OPENING NOTES PATIENT RECEIVED RESTING IN BED A/O X4. ON ROOM AIR BREATHING EVEN AND UNLABORED, NO SOB NOTED. NO SIGNS OF ACUTE DISTRESS. NO COMPLAINTS OF PAIN OR DISCOMFORT. PATIENT HAS BATHROOM PRIVILEGE, AMBULATORY. RIGHT UPPER CHEST PERMA CATH, L UPPER ARM FISTULA NOTED AND IV LOCATED ON R WRIST #22 AND R UA. SAFETY PRECAUTIONS IN PLACE WITH BED IN LOWEST POSITION, CALL LIGHT WITHIN REACH, BREAKS ON, AND SIDE RAILS UP X2. WILL CONTINUE TO MONITOR.
[2019-08-14 05:00] VITALS: BP 153/63
--- NOTE | 2019-08-14 06:20 | NUR ---
MS RN CLOSING NOTES PATIENT CURRENTLY RESTING IN BED A/O X 4. STABLE ON RA WITH BREATHING EVEN AND UNLABORED, NO SOB NOTED. NO SIGNS OF ACUTE DISTRESS NEEDED. NO COMPLAINTS OF PAIN OR DISCOMFORT. R UPPER CHEST PERMA CATH, L UA FISTULA, AND RIGHT WRIST AND UPPER ARM IV NOTED. PATIENT WAS KEPT CLEAN AND DRY THROUGHOUT THE NIGHT- ALL NEEDS ATTENDED TO. BREATHING EVEN AND UNLABORED, NO SOB NOTED, BREAKS ON, AND CALL LIGHT WITHIN REACH. WILL ENDORSE TO ONCOMING SHIFT ABOUT GENESIS.
[2019-08-14] MEDS: SEVELAMER CARBONATE 800 MG TABLET PO SCH ×3 (07:40→17:22)
[2019-08-14] MEDS: NIFEdipine XL 60 MG TAB PO SCH (07:41)
[2019-08-14] MEDS: HYDROCODONE/APAP 5/325MG 1 EACH TABLET PO PRN (07:42)
[2019-08-14 08:00] VITALS: BP 139/70
[2019-08-14 08:00] LABS: CALCIUM, SERUM 8.8 mg/dL (8.5-10.1); POTASSIUM 6.1 mmol/L (3.5-5.1)
[2019-08-14 08:50] LABS: CREATININE 10.4 mg/dL (0.6-1.3)
[2019-08-14 13:00] VITALS: BP 139/70
[2019-08-14 16:00] VITALS: BP 131/63
--- NOTE | 2019-08-14 17:59 | NUR ---
alert, oriented, c/o once duringthe shift , pain 6-01/19 on [facility] where av fistula just placed on 08/12. One po Norman 5/325mg given with relief completed hd after 2 1/2 hrs, 2liter out,all po pills given now, HL out, after dinner patient can go home with a taxis token
--- NOTE | 2019-08-14 19:30 | NUR ---
MS/RN OPENING NOTES: RECEIVED PATIENT ALERT AND AWAKE IN BED. A/OX4. GATHERING BELONGINGS. NO COMPLAINS OF PAIN OR DISCOMFORT AT THIS TIME. TO BE DISCHARGED AT [facility] BY HIMSELF. TAP CARD IS PROVIDED. WILL CONTINUE MONITORING.
--- NOTE | 2019-08-14 20:14 | NUR ---
MS/RN CLOSING NOTES: PATIENT LEFT UNIT IN STABLE CONDITION ALONG WITH ALL HIS BELONGINGS, WALKING RIGHT OUT WITHOUT NOTIFYING STAFF.
== END 2019-08-14 20:55 | disposition home or self-care (01) | DRG 444 ==
LOC: ER 15:19 → TELE-TD 23:01 → TELE1 08-09 13:23 → MEDSG1 08-12 08:26
PROVIDERS: ADMIT Internal Medicine; ATTEND Nurse Practitioner Acute Care
DX: T82.41XA Breakdown (mechanical) of vascular dialysis catheter, initial encounter (principal); I13.11 Hypertensive heart and chronic kidney disease without heart failure, with stage 5 chronic kidney disease, or end stage renal disease; E83.39 Other disorders of phosphorus metabolism; E87.1 Hypo-osmolality and hyponatremia; E87.5 Hyperkalemia; N18.6 End stage renal disease; Y71.2 Prosthetic and other implants, materials and accessory cardiovascular devices associated with adverse incidents; Z99.2 Dependence on renal dialysis; D63.8 Anemia in other chronic diseases classified elsewhere; F17.210 Nicotine dependence, cigarettes, uncomplicated; J98.11 Atelectasis; Z91.19 Patient's noncompliance with other medical treatment and regimen; B19.20 Unspecified viral hepatitis C without hepatic coma; N25.81 Secondary hyperparathyroidism of renal origin; Y92.009 Unspecified place in unspecified non-institutional (private) residence as the place of occurrence of the external cause
CPT/HCPCS: 36415; 71045-TC; 80048-TC; 83735-TC; 84100-TC; 84132-TC; 84484-TC; 85025-TC; 85730-TC; 86706; 86850-TC; 87081-TC; 87340; 90935-TC; C1750; C1768; G0378; J0690; J1100; J1644; J1815; J2405; J2704; J2765; J2997; J3010; J3490; J7060

== ENCOUNTER 2019-09-05 12:48 | Emergency (ER) | payer SELFPAY ==
[~2019-09-05] VITALS: Ht 180.3 cm; Wt 79.8 kg
[~2019-09-05 12:48] MED LIST changes: -LACT1CAP72 PO; -LEVO500T90 PO; -PANT40TA2 PO; -SEVE800T7 PO
--- NOTE | 2019-09-05 12:56 | NUR ---
c/o cough, sob, body aches x 2 days. Patient a/ox4, breathing even and unlabored, no sob noted, kept comfortable. Afebrile.
--- NOTE | 2019-09-05 13:00 | NUR ---
DR. DURAN AT BEDSIDE FOR EVAL.
--- NOTE | 2019-09-05 13:51 | NUR ---
Patient discharged to home in stable condition. Written and verbal after care instructions given. Patient verbalizes understanding of instruction.
[2019-09-05 13:52] VITALS: BP 164/70
== END 2019-09-05 13:52 | disposition home or self-care (01) ==
LOC: ER 12:50
DX: J20.9 Acute bronchitis, unspecified (principal); I12.0 Hypertensive chronic kidney disease with stage 5 chronic kidney disease or end stage renal disease; N18.6 End stage renal disease; Z99.2 Dependence on renal dialysis; Z86.19 Personal history of other infectious and parasitic diseases; Z98.890 Other specified postprocedural states; Z79.899 Other long term (current) drug therapy
CPT/HCPCS: 71045-TC